=== PATIENT | male | born 1945 | race Caucasian/White ===

== ENCOUNTER 2017-08-20 06:21 | Inpatient (IN) | payer MEDICARE ==
[2017-08-20] VITALS (10 sets, daily range): BP systolic 121–171; BP diastolic 55–109; PULSE 63–92; RESP 18–20; TEMP 96.5–97.9; O2SAT 94–98
[~2017-08-20] VITALS: Ht 172.7 cm; Wt 94.1 kg
[~2017-08-20 06:21] MED LIST: ARIC5TAB PO; ASPI81TA82 PO; B12-1CHW CHEW; CORE25TA PO; HYZA100T6 PO; METF-324 PO; PRESCAP5 PO; SPIR25 PO; TAB-TAB PO
[2017-08-20] MEDS ORDERED: IOHEXOL 350 MG/ML 50 ML BTL (for RAD DIAG) IVCONTRAST ONE (06:22)
[2017-08-20] MEDS ORDERED: B-122000 PO (06:48)
[2017-08-20] MEDS ORDERED: ASPI-516 CHEW (06:48)
--- NOTE | 2017-08-20 06:54 | PD ---
HPI Chief Complaint: Respiratory Distress Time Seen by Provider: 06:47 Travel History International Travel<30 days: No Contact w/Intl Traveler<30days: No Traveled to known affect area: No History of Present Illness HPI 72-year-old male complains of shortness of breath. Patient states that his symptoms started a week ago and got progressively worse since then. Patient states that the shortness of it is worse with exertion and lying down at night. Patient denies any coughing congestion fever chills. Patient denies any chest pain. Patient denies abdominal pain. Patient denies any focal weakness or numbness of the extremity. Patient had a history of cardiomyopathy. Patient states that his ejection fraction was 47%. Patient states that he is not on diuretic. Patient states that he had increase in swelling of lower extremity recently. PFSH Past Medical History Hx Anticoagulant Therapy: Yes (ASA 81 PO DAILY) Heart Rhythm Problems: Yes (NON-ISCHEMIC) Cardiomyopathy: Yes Cardiovascular Problems: Yes (non ischemic cardiac myopathy. ) Diabetes: Yes (Metformin) Patient Takes Glucophage: Yes Diminished Hearing: No Gastrointestinal Disorders: Yes (ELEVATED LFT) Hypertension: Yes Musculoskeletal: Yes (DDD) Immunizations Current: Yes Influenza Vaccination: No Past Surgical History Abdominal Surgery: Yes (UMBILICAL HERNIA REPAIRED) AICD: Yes (mymxlog-ObjectFXSO VR DEBRILLATOR. SERIAL#[id number], MODEL#[id number]) Body Medical Devices: MEDTRONIC VR DEFIB Cardiac Surgery: Yes (DEFIBRILLATOR PLACEMENT) Eye Surgery: Yes (BILAT CATARACTS) Genitourinary Surgery: Yes (VASECTOMY) Joint Replacement: Yes ([facility]) Oral Surgery: Yes (S[facility]) Other Surgery: Yes (HEMORROIDECTOMY,STOMACH WALL REPAIR,VARICOSE VEIN ) Social History Alcohol Use: Yes (OCC) Tobacco Use: No Substance Use: No Allergies-Medications (Allergen,Severity, Reaction): Coded Allergies: penicillin G (Unverified Allergy, Severe, SYNCOPE, 02/01/17) Reported Meds & Prescriptions Reported Meds & Active Scripts Active Reported B-12 (Cyanocobalamin) 2,000 Mcg Tab Unknown Dose PO DAILY Aspirin 81 Mg Chew 81 Mg CHEW DAILY Review of Systems General / Constitutional: No: Fever Eyes: No: Visual changes HENT: No: Headaches Cardiovascular: No: Chest Pain or Discomfort Respiratory: Positive: Shortness of Breath Gastrointestinal: No: Abdominal Pain Genitourinary: No: Dysuria Musculoskeletal: No: Pain Skin: No Rash Neurologic: No: Weakness Psychiatric: No: Depression Endocrine: No: Polydipsia Hematologic/Lymphatic: No: Easy Bruising Physical Exam Narrative GENERAL: Well-nourished, well-developed patient. SKIN: Focused skin assessment warm/dry. HEAD: Normocephalic. EYES: No scleral icterus. No injection or drainage. NECK: Supple, trachea midline. No JVD or lymphadenopathy. CARDIOVASCULAR: Regular rate and rhythm without murmurs, gallops, or rubs. RESPIRATORY: Breath sounds equal bilaterally. No accessory muscle use. GASTROINTESTINAL: Abdomen soft, non-tender, nondistended. MUSCULOSKELETAL: No cyanosis. Patient had +1 pitting edema lower extremity. BACK: Nontender without obvious deformity. No CVA tenderness. Neurologic exam normal. Data Data Last Documented VS Vital Signs Date Time Temp Pulse Resp B/P (MAP) Pulse Ox O2 Delivery O2 Flow Rate FiO2 08/20/17 06:39 88 18 152/79 (103) 98 Nasal Cannula 2.00 08/20/17 06:25 96.5 Orders Orders Electrocardiogram (08/20/17 06:42) Complete Blood Count With Diff (08/20/17 06:42) Basic Metabolic Panel (Bmp) (08/20/17 06:42) Ckmb (Isoenzyme) Profile (08/20/17 06:42) Troponin I (08/20/17 06:42) Chest, Single Ap (08/20/17 06:42) Iv Access Insert/Monitor (08/20/17 06:42) Ecg Monitoring (08/20/17 06:42) Oxygen Administration (08/20/17 06:42) Oximetry (08/20/17 06:42) B-Type Natriuretic Peptide (08/20/17 06:42) MDM Medical Decision Making Medical Screen Exam Complete: Yes Emergency Medical Condition: Yes Differential Diagnosis Differential diagnosis including CHF, bronchitis, pneumonia, PE, pneumothorax. Narrative Course 72-year-old male with increasing shortness of breath and lower extremity edema for the past week. History of cardiomyopathy. History of reduced ejection fraction of 47%. Johny Zavaleta MD Aug 20, 2017 06:54
--- NOTE | 2017-08-20 07:01 | RADRPT ---
EXAM DATE/TIME: 08/20/2017 06:48 [facility] COMPARISON: CHEST SINGLE AP, August 06, 2015, 14:12. INDICATIONS : Shortness of breath. MEDICAL HISTORY : Hypertension. Diabetes mellitus type II. SURGICAL HISTORY : None. ENCOUNTER: Initial ACUITY: 1 day PAIN SCORE: 0/10 LOCATION: Bilateral chest FINDINGS: A single view of the chest demonstrates the lungs to be symmetrically aerated without evidence of mas s, infiltrate or effusion. Chronic elevation of the right hemidiaphragm. Heart is mildly enlarged but stable. Pacing device overlies the left chest. Osseous structures are intact. CONCLUSION: Stable cardiomegaly. The lungs are clear. Alexandre Jj MD on August 20, 2017 at 6:59
[2017-08-20] MEDS ORDERED: LOSA100T2 PO (07:16)
[2017-08-20] MEDS ORDERED: CORE25TA PO (07:16)
[2017-08-20] MEDS ORDERED: METF1000 PO (07:16)
[2017-08-20] MEDS ORDERED: TAMS5CAP PO (07:16)
[2017-08-20 07:21] LABS: AUTOMATED NEUTROPHIL # 5.2 TH/MM3 (1.8-7.7); BASOPHIL % 0.7 % (0.0-2.0); EOSINOPHIL # 0.2 TH/MM3 (0-0.4); EOSINOPHIL % 3.2 % (0.0-4.0); HEMATOCRIT 44.5 % (39.0-51.0); HEMOGLOBIN 15.3 GM/DL (13.0-17.0); LYMPH % 12.9 % (9.0-44.0); LYMPHOCYTE # 0.9 TH/MM3 (1.0-4.8); MEAN CELL VOLUME 89.3 FL (80.0-100.0); MEAN CORPUSCULAR HEMOGLOBIN 30.6 PG (27.0-34.0); MEAN CORPUSCULAR HGB CONC 34.3 % (32.0-36.0); MEAN PLATELET VOLUME 9.3 FL (7.0-11.0); MONO % 10.2 % (0.0-8.0); MONOCYTE # 0.7 TH/MM3 (0-0.9); PLATELET COUNT 156 TH/MM3 (150-450); RED BLOOD COUNT 4.98 MIL/MM3 (4.50-5.90); RED CELL DISTRIBUTION WIDTH 13.3 % (11.6-17.2); WHITE BLOOD COUNT 7.1 TH/MM3 (4.0-11.0)
[2017-08-20 08:06] LABS: BLOOD UREA NITROGEN 24 MG/DL (7-18); CALCIUM 9.2 MG/DL (8.5-10.1); CHLORIDE 107 MEQ/L (98-107); CREATININE 1.33 MG/DL (0.60-1.30); GLOMERULAR FILTRATION RATE 53 ML/MIN (>89); GLUCOSE,RANDOM 161 MG/DL (74-106); SODIUM (NA) 143 MEQ/L (136-145); TROPONIN I LESS THAN 0.02 NG/ML (0.02-0.05)
[2017-08-20] MEDS ORDERED: FUROSEMIDE 20 MG/2 ML VIAL IV PUSH ONE (08:30)
--- NOTE | 2017-08-20 09:00 | RADRPT ---
EXAM DATE/TIME: 08/20/2017 08:43 [facility] COMPARISON: No previous studies available for comparison. INDICATIONS : Shortness of breath. IV CONTRAST: 74 cc Omnipaque 350 (iohexol) IV RADIATION DOSE: 22.66 CTDIvol (mGy) MEDICAL HISTORY : Cardiovascular disease. Hypertension. Diabetes mellitus type 2. SURGICAL HISTORY : Pacemaker. ENCOUNTER: Initial ACUITY: 1 day PAIN SCALE: 0/10 LOCATION: Bilateral chest TECHNIQUE: Volumetric scanning of the chest was performed using a pulmonary embolism protocol MIP images were re constructed. Using automated exposure control and adjustment of the mA and/or kV according to patien t size, radiation dose was kept as low as reasonably achievable to obtain optimal diagnostic quality images. DICOM format image data is available electronically for review and comparison. Follow-up recommendations for detected pulmonary nodules are based at a minimum on nodule size and pa tient risk factors according to Fleischner Society Guidelines. FINDINGS: There is elevation of the right hemidiaphragm with colon, liver and small bowel in the right chest. There is compressive atelectasis in the right base because of this. The heart is enlarged mild interstitial edema. Moderate artery calcifications are noted. There is n o pericardial effusion. There is no central pulmonary emboli. There is axillary adenopathy on the left the largest node measuring 1.6 cm. There is nonspecific sma ll mediastinal nodes present. Upper abdominal contents visualized are unremarkable Degenerative changes thoracic spine. CONCLUSION: Marked elevation right hemidiaphragm with compressive atelectasis right base. Negative for central pulmonary emboli Nonspecific adenopathy. Mikey Stringer MD FACR on August 20, 2017 at 8:56 Board Certified Radiologist. This report was verified electronically.
--- NOTE | 2017-08-20 09:03 | EKG ---
Date Performed: 08/20/2017 Time Performed: 06:38:05 PTAGE: 72 years EKG: ATRIAL FIBRILLATION WITH ABERRANT CONDUCTION OR VENTRICULAR PREMATURE COMPLEXES MARKED LEFT AXIS DEVIATION POSSIBLE ANTERIOR MYOCARDIAL INFARCTION ABNORMAL ECG PREVIOUS TRACING : 08/06/2015 19.58 DOCTOR: Larry Moran Interpretating Date/Time 08/20/2017 09:02:11
--- NOTE | 2017-08-20 09:23 | HHI.HP ---
HPI Service Family Medicine Primary Care Physician Non-Staff Admission Diagnosis CHF; AFib Diagnoses: International Travel<30 Days: No Contact w/Intl Traveler<30days: No Known Affected Area: No History of Present Illness Patient is a 72- year-old Male with PMHx of non-ischemic cardiomyopathy, CHF, HTN, and DM presented to the ED with 1 wk h/o SOB associated with inability to lay down. He stated he thought it was going to get better and since it did not improved he came to the ED for evaluation. Patient reports nothing made the SOB better. Denies any increased SOB with ambulation. Patient and live in [place] and spend 4 months out of the year in [place]. He is not established with any biblical studies professor in the area. He last saw his biblical studies professor ( Dr. Childress tel:[phone]) in [place] in 2016 and was told everything was good. Echo done at that time showed EF 50% and was told to f/u in a yr. Denies fever, chill, CP, N/V, palpitations, or dizziness. Patient states his [id number] was sick but he denies any cold-like sxs. Of note patient stated that last time he had SOB with laying down occurred in 2007 after he had Left hip surgery, at that time he ended up requiring ICU care for 16 days and found to have an EF of 10%. Patient stated that he was told the cardiomyopathy was due to a virus and was diagnosed with non ischemic cardiomyopathy. Patient also reports that during that time he had a pacer- defibrillator placed by Dr. Bustos, which was replaced Summer 2016. Denies any prior hx of atrial fibrillation. Patient takes promethazine for allergies. (Lizette Leach MD, R1) Review of Systems Constitutional: COMPLAINS OF: Fatigue (chronic), Weight gain (10lbs), DENIES: Fever, Weight loss, Chills, Dizziness, Change in appetite Eyes: DENIES: Blurred vision, Eye pain Ears, nose, mouth, throat: DENIES: Vertigo, Nasal discharge, Throat pain, Running Nose, Sinus Pain Respiratory: COMPLAINS OF: Cough (chronic in the am due to allergies), Shortness of breath, DENIES: Hemoptysis Cardiovascular: DENIES: Chest pain, Palpitations, Lower Extremity Edema Gastrointestinal: COMPLAINS OF: Abdominal pain (diastatis in stomach, chronic ) , DENIES: Bloody stools, Constipation, Diarrhea, Nausea, Vomiting Genitourinary: DENIES: Urinary frequency, Dysuria Musculoskeletal: COMPLAINS OF: Joint pain (R. knee pain, 2016 chronic), Back pain (L4-5 degenerative disc, spinal stenosis), DENIES: Muscle aches Integumentary: DENIES: Rash Hematologic/lymphatic: DENIES: Bruising Neurologic: DENIES: Headache, Localized weakness, Seizures Psychiatric: DENIES: Confusion (Lizette Leach MD, R1) Past Family Social History Past Medical History CHF HTN DM, range A1C 6.5 spinal stenosis degenerative disc l4-l5 adult onset macular degenerative Past Surgical History Left hip 2004 Right knee, 2016 Reported Medications Reported Meds & Active Scripts Active Reported Metformin (Metformin HCl) 1,000 Mg Tab 1,000 Mg PO DAILY With a meal Losartan-Hydrochlorothiazide 100-25 Mg Tab 1 Tab PO DAILY Flomax (Tamsulosin HCl) 0.4 Mg Cap 0.4 Mg PO HS Coreg (Carvedilol) 25 Mg Tab 25 Mg PO BID B-12 (Cyanocobalamin) 2,000 Mcg Tab Unknown Dose PO DAILY Aspirin 81 Mg Chew 81 Mg CHEW DAILY (Lizette Leach MD, R1) Allergies: Coded Allergies: penicillin G (Unverified Allergy, Severe, SYNCOPE, 02/01/17) Family History mom- [place] at 83 yo dad- coronary thrombosis, alcoholic, at 57yo brother- CHF Social History Patient lives with , they are from [place] and come [place] for 4 months out of the year. They are currently staying live in [facility] for 4 months out of the years retired, senior manager quality assurance smoke, quit 30 yr ago, 25 smoked 2 packs per day, in addition to pipe tobacco alcohol: occassinal, once a wk illicit drug: none decreased appetite (Lizette Leach MD, R1) Physical Exam Vital Signs Vital Signs Date Time Temp Pulse Resp B/P (MAP) Pulse Ox O2 Delivery O2 Flow Rate FiO2 08/20/17 06:54 98 Nasal Cannula 2.00 08/20/17 06:54 98 Nasal Cannula 2.00 08/20/17 06:39 88 18 152/79 (103) 98 Nasal Cannula 2.00 08/20/17 06:35 20 94 Room Air 08/20/17 06:25 96.5 92 20 171/109 (437) 97 Physical Exam GENERAL: This is a well-nourished, well-developed patient, in no apparent distress, sitting in chair. SKIN: No rashes, ecchymoses. Cool and dry. Small healing lesion on dorsum of Left foot. HEAD: Atraumatic. Normocephalic. EYES: Pupils equal round and reactive. Extraocular motions intact. No scleral icterus. No injection or drainage. ENT: Nose without bleeding, purulent drainage or septal hematoma. Throat without erythema, tonsillar hypertrophy or exudate. Uvula midline. Airway patent. NECK: Trachea midline. No JVD or lymphadenopathy. Supple, nontender, no meningeal signs. No hepato CARDIOVASCULAR: Irregular rate and rhythm without murmurs, gallops, or rubs. RESPIRATORY: Clear to auscultation. Decreased breath sound on Right lower base. No wheezes, rales, or rhonchi. GASTROINTESTINAL: Abdomen distended, hard. unable to appreciate fluid shift on exam. No hepato-splenomegaly, or palpable masses. No guarding. no hepatojugular reflux noted. MUSCULOSKELETAL: Extremities without clubbing, or cyanosis. Mild Right LE edema noted. No joint tenderness, effusion, or edema noted. No calf tenderness. Negative Homans sign bilaterally. NEUROLOGICAL: Awake and alert. Cranial nerves II through XII intact. Motor and sensory grossly within normal limits. Five out of 5 muscle strength in all muscle groups. Normal speech. Laboratory Laboratory Tests Test 08/20/17 07:00 White Blood Count 7.1 Red Blood Count 4.98 Hemoglobin 15.3 Hematocrit 44.5 Mean Corpuscular Volume 89.3 Mean Corpuscular Hemoglobin 30.6 Mean Corpuscular Hemoglobin Concent 34.3 Red Cell Distribution Width 13.3 Platelet Count 156 Mean Platelet Volume 9.3 Neutrophils (%) (Auto) 73.0 Lymphocytes (%) (Auto) 12.9 Monocytes (%) (Auto) 10.2 Eosinophils (%) (Auto) 3.2 Basophils (%) (Auto) 0.7 Neutrophils # (Auto) 5.2 Lymphocytes # (Auto) 0.9 Monocytes # (Auto) 0.7 Eosinophils # (Auto) 0.2 Basophils # (Auto) 0.0 CBC Comment DIFF FINAL Differential Comment Blood Urea Nitrogen 24 Creatinine 1.33 Random Glucose 161 Calcium Level 9.2 Sodium Level 143 Potassium Level 4.2 Chloride Level 107 Carbon Dioxide Level 34.0 Anion Gap 2 Estimat Glomerular Filtration Rate 53 Total Creatine Kinase 111 Creatine Kinase MB 1.5 Troponin I LESS THAN 0.02 B-Type Natriuretic Peptide 230 (Lizette Leach MD, R1) Result Diagram: 08/20/17 0700 08/20/[address] Angiography 08/20/17 08 Signed Impressions: Service Date/Time: Sunday, August 20, 2017 08:43 - CONCLUSION: Marked elevation right hemidiaphragm with compressive atelectasis right base. Negative for central pulmonary emboli Nonspecific adenopathy. Mikey Stringer MD FACR Chest X-Ray 08/20/17 0642 Signed Impressions: Service Date/Time: Sunday, August 20, 2017 06:48 - CONCLUSION: Stable cardiomegaly. The lungs are clear. Alexandre Jj MD (Lizette Leach MD, R1) Caprini VTE Risk Assessment Caprini VTE Risk Assessment: Mod/High Risk (score >= 2) Caprini Risk Assessment Model Point Value = 1 Point Value = 2 Point Value = 3 Point Value = 5 Age 41-60 Minor surgery BMI > 25 kg/m2 Swollen legs Varicose veins or History of unexplained or recurrent spontaneous Oral contraceptives or hormone replacement Sepsis (< 1 month) Serious lung disease, including pneumonia (< 1 month) Abnormal pulmonary function Acute myocardial infarction Congestive heart failure (< 1 month) History of inflammatory bowel disease Medical patient at bed rest Age 61-74 Arthroscopic surgery Major open surgery (> 45 min) Laparoscopic surgery (> 45 min) Malignancy Confined to bed (> 72 hours) Immobilizing plaster cast Central venous access Age >= 75 History of VTE Family history of VTE Factor V Leiden Prothrombin [id number] Lupus anticoagulant Anticardiolipin antibodies Elevated serum homocysteine Heparin-induced thrombocytopenia Other congenital or acquired thrombophilia Stroke (< 1 month) Elective arthroplasty Hip, pelvis, or leg fracture Acute spinal cord injury (< 1 month) Prophylaxis Regimen Total Risk Factor Score Risk Level Prophylaxis Regimen 0-1 Low Early ambulation 2 Moderate Order ONE of the following: *Sequential Compression Device (SCD) *Heparin 5000 units SQ BID 3-4 Higher Order ONE of the following medications: *Heparin 5000 units SQ TID *Enoxaparin/Lovenox 40 mg SQ daily (WT < 150 kg, CrCl > 30 mL/min) *Enoxaparin/Lovenox 30 mg SQ daily (WT < 150 kg, CrCl > 10-29 mL/min) *Enoxaparin/Lovenox 30 mg SQ BID (WT < 150 kg, CrCl > 30 mL/min) AND/OR *Sequential Compression Device (SCD) 5 or more Highest Order ONE of the following medications: *Heparin 5000 units SQ TID (Preferred with Epidurals) *Enoxaparin/Lovenox 40 mg SQ daily (WT < 150 kg, CrCl > 30 mL/min) *Enoxaparin/Lovenox 30 mg SQ daily (WT < 150 kg, CrCl > 10-29 mL/min) *Enoxaparin/Lovenox 30 mg SQ BID (WT < 150 kg, CrCl > 30 mL/min) AND *Sequential Compression Device (SCD) (Lizette Laech MD, R1) Assessment and Plan Assessment and Plan Patient is a 72- year-old Male with PMHx of non-ischemic cardiomyopathy, CHF, HTN, and DM presented to the ED with 1 wk h/o SOB associated with orthopnea. Patient found to be in rate controlled new onset atrial fibrillation on EKG. Admitted for further w/u of SOB CHF exacerbation vs. atrial fib. Pt is stable with slight elevation of BP, O2 saturation of 97 on 2 L NC, other VS WNL. No signs of infection. Code Status Full code Discussed Condition With SWD Dr. Shahram Lawson (Lizette Leach MD, R1) Attending Attestation Pt. was seen and examined after discussing with Drs. Leach and Shahram. He is from [facility] and has not check his glucose since the end of May when he came to [place] for 4 months. He used to keep a spread sheet and his last accucheck in [place] was 120 and his A1c was reportedly 6.6. He has an defibrillator /AICD as of just over year ago when it was replaced for battery failure. Pt. report no hx of atrial fibrillation. Has been having orthopnea recently, and his pants have felt too tight. Thinks he may have gained at least 10 lb. I agree with the exam as noted above. Patient seen and examined. Case reviewed and discussed with the resident team. Agree with plan of care as discussed with me and documented in the resident note. (Aliyah Lawson MD) Problem List: (1) Shortness of breath ICD Codes: R06.02 - Shortness of breath Status: Acute Plan: Patient with c/o 1 wk h/o SOB associated with orthopnea. -Pt has PMHx of CHF, HTN and non-ischemic cardiomyopathy with pacer- defibrillator in place. Denies history of afib. -Mild Right LE edema, abdominal distention noted on exam. Denies palpitation or dizziness. Reports improvement of SOB on 2L NC. DDX: CHF exacerbation, A. Fib, PE, AR No leukocytosis, troponin x1 neg, BNP 230 EKG: Atrial Fibrillation with aberrant conduction or ventricular premature complexes. Left axis deviation unchanged from previous EKG in 07/2015 CXR: Stable cardiomegaly, lungs are clear CTA: Marked elevation right hemidiaphragm with compressive atelectasis right base. Negative for central pulmonary emboli and specific adenopathy. -c/w asa -Pt placed on telemetry -f/u Echo, abdominal u/s, TSH, free T4 -f/u serial troponin and EKG -Patient with a CHADSVASC SCORE: 4, consider anticoagulation therapy once reports from echo are back -Cardiology consulted, appreciate recommendations (2) CHF (congestive heart failure) ICD Codes: I50.9 - Heart failure, unspecified Status: Chronic Plan: c/w home medication, coreg see chest pain plan above (3) Hypertension ICD Codes: I10 - Essential (primary) hypertension Status: Chronic Plan: c/w home meds monitor VS (4) DM (diabetes mellitus) ICD Codes: E11.9 - Type 2 diabetes mellitus without complications Status: Chronic Plan: Patient has not been checking his BG for the past wk. B on admission Bedside glucose chks low dose sliding scale Last A1C 6.5, per patient continue to monitor (5) History of cardiomyopathy ICD Codes: Z86.79 - Personal history of other diseases of the circulatory system Status: Chronic Plan: Patient with past medical history of nonischemic cardiomyopathy Cardiomegaly noted on chest x-ray -See plan above for SOB (6) Nutrition, metabolism, and development symptoms ICD Codes: R63.8 - Other symptoms and signs concerning food and fluid intake Plan: Fluids: will hold off at this point Electrolytes: replete as needed, will continue to monitor Nutrition: heart healthy DVT ppx: therapeutic Lovenox given (Lizette Leach MD, R1) Problem Qualifiers (1) CHF (congestive heart failure): Qualified Codes: I50.9 - Heart failure, unspecified (2) DM (diabetes mellitus): Lizette Leach MD, R1 Aug 20, 2017 09:22 Aliyah Lawson MD Aug 20, 2017 19:33
[2017-08-20] MEDS ORDERED: SODIUM CHLORIDE 0.9% FLUSH 10 ML FLUSH IV FLUSH PRN (10:15)
[2017-08-20] MEDS ORDERED: GLUCAGON 1 MG/ML VIAL OTHER PRN (10:30)
[2017-08-20] MEDS ORDERED: DEXTROSE 50% IN WATER 50 ML VIAL(D50) IV PUSH PRN (10:30)
--- NOTE | 2017-08-20 10:36 | PD ---
Data Data Last Documented VS Vital Signs Date Time Temp Pulse Resp B/P (MAP) Pulse Ox O2 Delivery O2 Flow Rate FiO2 08/20/17 06:54 98 Nasal Cannula 2.00 08/20/17 06:39 88 18 08/20/17 06:25 96.5 Orders Orders Electrocardiogram (08/20/17 06:42) Complete Blood Count With Diff (08/20/17 06:42) Basic Metabolic Panel (Bmp) (08/20/17 06:42) Ckmb (Isoenzyme) Profile (08/20/17 06:42) Troponin I (08/20/17 06:42) Chest, Single Ap (08/20/17 06:42) Iv Access Insert/Monitor (08/20/17 06:42) Ecg Monitoring (08/20/17 06:42) Oxygen Administration (08/20/17 06:42) Oximetry (08/20/17 06:42) B-Type Natriuretic Peptide (08/20/17 06:42) CKMB (08/20/17 07:00) CKMB% (08/20/17 07:00) Ct Pulmonary Angiogram (08/20/17 08:19) Furosemide Inj (Lasix Inj) (08/20/17 08:30) Iohexol 350 Inj (Omnipaque 350 Inj) (08/20/17 06:22) Admit Order (Ed Use Only) (08/20/17 ) Commercial Carpenter / Telemetry [email or web address] (08/20/17 08:49) Vital Signs (Adult) Q4H (08/20/17 08:49) Diet Heart Healthy (08/20/17 Breakfast) Activity Oob With Assistance (08/20/17 08:49) Labs Laboratory Tests Test 08/20/17 07:00 White Blood Count 7.1 TH/MM3 Red Blood Count 4.98 MIL/MM3 Hemoglobin 15.3 GM/DL Hematocrit 44.5 % Mean Corpuscular Volume 89.3 FL Mean Corpuscular Hemoglobin 30.6 PG Mean Corpuscular Hemoglobin Concent 34.3 % Red Cell Distribution Width 13.3 % Platelet Count 156 TH/MM3 Mean Platelet Volume 9.3 FL Neutrophils (%) (Auto) 73.0 % Lymphocytes (%) (Auto) 12.9 % Monocytes (%) (Auto) 10.2 % Eosinophils (%) (Auto) 3.2 % Basophils (%) (Auto) 0.7 % Neutrophils # (Auto) 5.2 TH/MM3 Lymphocytes # (Auto) 0.9 TH/MM3 Monocytes # (Auto) 0.7 TH/MM3 Eosinophils # (Auto) 0.2 TH/MM3 Basophils # (Auto) 0.0 TH/MM3 CBC Comment DIFF FINAL Differential Comment Blood Urea Nitrogen 24 MG/DL Creatinine 1.33 MG/DL Random Glucose 161 MG/DL Calcium Level 9.2 MG/DL Sodium Level 143 MEQ/L Potassium Level 4.2 MEQ/L Chloride Level 107 MEQ/L Carbon Dioxide Level 34.0 MEQ/L Anion Gap 2 MEQ/L Estimat Glomerular Filtration Rate 53 ML/MIN Total Creatine Kinase 111 U/L Creatine Kinase MB 1.5 NG/ML Troponin I LESS THAN 0.02 NG/ML B-Type Natriuretic Peptide 230 PG/ML MDM Medical Record Reviewed: Yes Supervised Visit with IVETT: No Narrative Course Please refer to the outgoing provider note: The patient will be admitted for treatment of CHF, new diagnosis for him he also has new A. fib with a normal rate. The time of reassessment he was somewhat dyspneic at rest. Lasix ordered. A CT pulmonary injury was also ordered which shows no PE however there is compressive atelectasis at the right base. CBC & BMP Diagram 08/20/17 07:00 Calcium Level 9.[address] Angiography 08/20/17 0819 Signed Impressions: Service Date/Time: Sunday, August 20, 2017 08:43 - CONCLUSION: Marked elevation right hemidiaphragm with compressive atelectasis right base. Negative for central pulmonary emboli Nonspecific adenopathy. Mikey Stringer MD FACR Chest X-Ray 08/20/17 0642 Signed Impressions: Service Date/Time: Sunday, August 20, 2017 06:48 - CONCLUSION: Stable cardiomegaly. The lungs are clear. Alexandre Jj MD Case discussed with family and consumer sciences professor for Dr Lawson Diagnosis Primary Impression: CHF (congestive heart failure) Qualified Codes: I50.9 - Heart failure, unspecified Additional Impression: Atrial fibrillation Qualified Codes: I48.91 - Unspecified atrial fibrillation Admitting Information Admitting Physician Requests: Observation Jabier Pickering MD Aug 20, 2017 10:36
[2017-08-20 10:59] LABS: PROTHROMBIN TIME - PATIENT 10.6 SEC (9.8-11.6)
[2017-08-20] MEDS ORDERED: HEPARIN SODIUM - SQ 10,000 UNITS/ML VIAL SQ SCH (11:00)
[2017-08-20] MEDS: INSULIN ASPART SUPPLEMENTAL SCALE SQ SCH ×3 (12:00→21:00)
[2017-08-20] MEDS: ENOXAPARIN SODIUM 100 MG/ML SYRINGE SQ SCH (12:10)
[2017-08-20] MEDS ORDERED: PROM6.254 PO (14:17)
--- NOTE | 2017-08-20 15:09 | ECHRPT ---
Indication: heart failure CONCLUSIONS Normal left ventricular size. The left ventricular systolic function is severely reduced with an estimated ejection fraction in th e range of 25-30% Global hypokinesis. Vqsrt-[id number] mitral valve regurgitation. There is mild tricuspid valve regurgitation. The estimated pulmonary arterial pressure is 66.6 mmHg. BP: / HR: Rhythm: MEASUREMENTS (Male / Female) Normal Values Technical Quality:Fair 2D ECHO LV Diastolic Diameter PLAX 5.3 cm 4.2 - 5.9 / 3.9 - 5.3 cm LV Systolic Diameter PLAX 4.8 cm IVS Diastolic Thickness 2.1 cm 0.6 - 1.0 / 0.6 - 0.9 cm LVPW Diastolic Thickness 1.2 cm 0.6 - 1.0 / 0.6 - 0.9 cm LV Relative Wall Thickness 0.6 RV Internal Dim ED PLAX 3.5 cm M-MODE Aortic Root Diameter MM 4.8 cm LA Systolic Diameter MM 4.5 cm LA Ao Ratio MM 0.9 AV Cusp Separation MM 2.6 cm DOPPLER LV E' Lateral Velocity 10.5 cm/s LV E' Septal Velocity 8.9 cm/s TR Peak Velocity 376.0 cm/s TR Peak Gradient 56.6 mmHg Right Atrial Pressure 10.0 mmHg Pulmonary Artery Systolic Pressu 66.6 mmHg Right Ventricular Systolic Press 66.6 mmHg FINDINGS LEFT VENTRICLE Normal left ventricular size. The left ventricular systolic function is severely reduced with an estimated ejection fraction in th e range of 25-30%. RIGHT VENTRICLE Normal right ventricular size and systolic function. LEFT ATRIUM The left atrial size is normal. RIGHT ATRIUM The right atrial size is normal. ATRIAL SEPTUM Normal atrial septal thickness without atrial level shunting by limited color doppler interrogation. AORTA The aortic root and proximal ascending aorta are normal in size on limited imaging. MITRAL VALVE Structurally normal mitral valve. Myopa-ed-tncw mitral valve regurgitation. AORTIC VALVE Trileaflet aortic valve. No aortic valve stenosis or regurgitation. TRICUSPID VALVE Structurally normal tricuspid valve. There is mild tricuspid valve regurgitation. The estimated pulmonary arterial pressure is 66.6 mmHg. PULMONARY VALVE No pulmonary valve regurgitation or stenosis. VESSELS The inferior vena cava is normal in size. PERICARDIUM No pericardial effusion. Cris Desir MD, FACC (Electronically Signed) Final Date:20 August 2017 15:09
[2017-08-20] MEDS ORDERED: METOPROLOL TARTRATE 25 MG TAB PO SCH (21:00)
[2017-08-20] MEDS ORDERED: CARVEDILOL 12.5 MG TAB PO SCH (21:00)
[2017-08-20] MEDS: TAMSULOSIN HCL 0.4 MG CAP PO SCH (21:34)
[2017-08-20] MEDS: METOPROLOL TARTRATE 25 MG TAB PO SCH (21:34)
[2017-08-20] MEDS: METOPROLOL TARTRATE 100 MG TAB PO SCH (21:34)
[2017-08-20] MEDS: SODIUM CHLORIDE 0.9% FLUSH 10 ML FLUSH IV FLUSH SCH (21:35)
--- NOTE | 2017-08-20 21:47 | RADRPT ---
EXAM DATE/TIME: 08/20/2017 19:11 [facility] COMPARISON: No previous studies available for comparison. INDICATIONS : Abdominal distention. MEDICAL HISTORY : Congestive heart failure. Hypertension. Cardiomyopathy. Anticoagulant therapy. Irregular heartbeat. Degernerative disc disease. Spinal stenosis. Diabetes. Elevated liver enzymes. SURGICAL HISTORY : Umbilical hernia repair. Hemorrhoidectomy. Internal defibrillator. Bilateral cataract removal. Sali vary gland surgery. Vasectomy. Left shoulder surgery. Spinal stenosis repair. Bilateral hand surgery. Left hip replacement. Right knee surgery. Stomach wall repair. Varicose vein surgery. ENCOUNTER: Initial ACUITY: 1 day PAIN SCORE: 3/10 LOCATION: Bilateral upper quadrant MEASUREMENTS: LIVER: 15.3 cm length COMMON DUCT: Non-visualized RIGHT KIDNEY: 12.2 x 5.5 x 6.7 cm LEFT KIDNEY: 10.9 x 4.1 x 5.6 cm SPLEEN: 12.8 cm length AORTA: 1.7cm maximal FINDINGS: Exam is limited by bowel gas. Pancreas, common bile duct, aorta, IVC and portions of the liver are no t visualized. Multiple right renal cysts measuring up to 6.5 cm upper pole and 5.5 cm lower pole. No hydronephrosis. Left kidney unremarkable. No focal liver abnormalities. Portal vein flowed normal dir ection. CONCLUSION: 1. Limited exam due to gaseous bowel. No acute findings. Multiple right renal cysts. Vik Castro MD on August 20, 2017 at 21:43 Board Certified Radiologist. This report was verified electronically.
[2017-08-20 22:55] LABS: TROPONIN I 0.03 NG/ML (0.02-0.05)
[2017-08-21] VITALS (11 sets, daily range): BP systolic 136–166; BP diastolic 77–88; PULSE 61–85; RESP 17–20; TEMP 97.3–98.5; O2SAT 85–97
[2017-08-21] MEDS: ENOXAPARIN SODIUM 100 MG/ML SYRINGE SQ SCH ×2 (00:31→13:14)
[2017-08-21 06:09] LABS: AUTOMATED NEUTROPHIL # 3.9 TH/MM3 (1.8-7.7); BASOPHIL % 0.6 % (0.0-2.0); EOSINOPHIL # 0.2 TH/MM3 (0-0.4); EOSINOPHIL % 3.1 % (0.0-4.0); HEMATOCRIT 42.3 % (39.0-51.0); HEMOGLOBIN 14.6 GM/DL (13.0-17.0); LYMPH % 14.6 % (9.0-44.0); LYMPHOCYTE # 0.8 TH/MM3 (1.0-4.8); MEAN CELL VOLUME 88.9 FL (80.0-100.0); MEAN CORPUSCULAR HEMOGLOBIN 30.6 PG (27.0-34.0); MEAN CORPUSCULAR HGB CONC 34.5 % (32.0-36.0); MEAN PLATELET VOLUME 9.2 FL (7.0-11.0); MONOCYTE # 0.5 TH/MM3 (0-0.9); NEUT % 71.7 % (16.0-70.0); PLATELET COUNT 132 TH/MM3 (150-450); RED BLOOD COUNT 4.76 MIL/MM3 (4.50-5.90); RED CELL DISTRIBUTION WIDTH 13.2 % (11.6-17.2); WHITE BLOOD COUNT 5.5 TH/MM3 (4.0-11.0)
[2017-08-21 06:25] LABS: BICARBONATE 32.6 MEQ/L (21.0-32.0); CALCIUM 8.6 MG/DL (8.5-10.1); CREATININE 1.22 MG/DL (0.60-1.30)
[2017-08-21] MEDS: INSULIN ASPART SUPPLEMENTAL SCALE SQ SCH ×4 (08:00→22:08)
--- NOTE | 2017-08-21 08:49 | MB ---
cc: Cris Desir MD DATE OF CONSULT: 08/20/2017 REASON FOR CONSULTATION: New onset atrial fibrillation. HISTORY OF PRESENT ILLNESS: Mr. Goff is a 72-year-old man who does have a remote history of a viral cardiomyopathy with subsequent [employer] ICD placement. He reports that he had some progressive shortness of breath and orthopnea. He subsequently came to the emergency room and was found to be in atrial fibrillation with rapid ventricular rate. The patient other than the weight gain and shortness of breath denies any chest pain. He has had some lower extremity edema. PAST MEDICAL HISTORY: Significant for the viral cardiomyopathy. His initial EF was 10%. The patient reports that his most recent EF was 40-50%. He is status post gen change with [employer] ICD. He also has a history of hypertension, diabetes, congestive heart failure, degenerative disc disease, concussion, hemorrhoid surgery, left hip replacement, right knee replacement, elevated bilirubin, rhinoplasty, salivary gland surgery, shoulder surgery, spinal stenosis, splenic wall repair, umbilical hernia repair,varicose vein surgery, vasectomy. OUTPATIENT MEDICATIONS: 1. Aspirin 81 mg a day 2. B12 3. Vitamins 4. Coreg 25 mg q. 12 5. Flomax 0.4 mg daily 6. Losartan hydrochlorothiazide daily 7. Metformin 1000 mg daily 8. Promethazine p.r.n. FAMILY HISTORY: Includes myocardial infarction. SOCIAL HISTORY: The patient is a former smoker and is . REVIEW OF SYSTEMS: Except as mentioned in the history of present illness, all 12-systems are negative. PHYSICAL EXAMINATION: VITAL SIGNS: 81, 20, 146/91. GENERAL: He is an obese man, who is in no apparent distress. NECK: His neck is free from JVD. LUNGS: Bilaterally clear to auscultation. CARDIOVASCULAR: He has a normal S1 and S2. I did not appreciate any murmurs, rubs or gallops. ABDOMEN: Soft. EXTREMITIES: Do still have a mild amount of edema. Of note, there is a liter of urine in the urinal at the bedside. LABORATORY DATA: Lab values significant for a creatinine of 1.33, glucose of 161, BNP of 230, troponin less than 0.02 and free TSH of 1.3. IMAGING STUDIES: Chest x-ray shows clear lungs. TELEMETRY: Does show atrial fibrillation with a controlled ventricular rate at 85 beats a minute. IMPRESSION: New onset atrial fibrillation - the patient does have a CHADS vas score of 4 with a point for over 65, hypertension, diabetes and congestive heart failure. We discussed anticoagulation with Coumadin versus the new oral agents. He would like to go with a new agent provided it is covered by his insurance. He is going to check on this. He does understand that Pradaxa is the only one with a reversal agent and the other newer agents do not have an antidote. He will undergo echocardiogram and stress testing. This may be considered as an outpatient depending on the ability to schedule. The patient will be changed from Coreg to metoprolol for improved rate control. Heart failure - this is an acute on chronic presentation exacerbated by his atrial fibrillation with RVR. He has diuresed quite a bit but does still have some edema. As his rate is controlled I suspect we will be able to continue him only on his hydrochlorothiazide. Of course this will be pending the echo evaluation of his EF. Viral cardiomyopathy - as above I would continue him on a beta-abhijit and his ARB. Thank you for allowing me the opportunity to participate in his care. MD HANDY Mahmood/ELIJAH/ken , 11:20 AM , 11:57 AM
--- NOTE | 2017-08-21 08:50 | PD.CARD.PN ---
Subjective Subjective Remarks Pt without complaints Objective Medications Current Medications Medications (Trade) Dose Ordered Sig/Shana Route Start Time Stop Time Status Last Admin (NS Flush) 2 ml BID IV FLUSH 08/20/17 21:00 08/20/17 21:35 (NS Flush) 2 ml UNSCH PRN IV FLUSH 08/20/17 10:15 (Aspirin Chew) 81 mg DAILY CHEW 08/21/17 09:00 (Flomax) 0.4 mg HS PO 08/20/17 21:00 08/20/17 21:34 (Hydrodiuril) 25 mg DAILY PO 08/21/17 09:00 (D50w (Vial) Inj) 50 ml UNSCH PRN IV PUSH 08/20/17 10:30 (Glucagon Inj) 1 mg UNSCH PRN OTHER 08/20/17 10:30 (NovoLOG SUPPLEMENTAL SCALE) 1 ACHS SLIDING SCALE SQ 08/20/17 12:00 (Lovenox Inj) 97 mg Q12H SQ 08/20/17 12:00 08/21/17 00:31 (Cozaar) 50 mg DAILY PO 08/21/17 09:00 (Lopressor) 100 mg Q12HR PO 08/20/17 21:00 08/20/17 21:34 (Lopressor) 25 mg Q12HR PO 08/20/17 21:00 08/20/17 21:34 Vital Signs / I&O Vital Signs Date Time Temp Pulse Resp B/P (MAP) Pulse Ox O2 Delivery O2 Flow Rate FiO2 08/21/17 08:02 97.8 80 17 143/88 (106) 97 08/21/17 04:00 97.5 75 20 156/77 (103) 95 08/21/17 04:00 Nasal Cannula 2.00 08/21/17 04:00 70 08/21/17 02:46 94 Nasal Cannula 2.00 08/21/17 00:00 61 08/21/17 00:00 97.5 76 20 136/82 (100) 95 08/21/17 00:00 95 Nasal Cannula 2.00 08/20/17 20:00 97.7 85 20 154/91 (112) 94 08/20/17 20:00 94 Nasal Cannula 2.00 08/20/17 20:00 90 08/20/17 16:00 Nasal Cannula 2.00 08/20/17 15:13 86 08/20/17 15:10 Nasal Cannula 2.00 08/20/17 15:00 97.9 63 18 121/55 (77) 96 08/20/17 14:12 96 08/20/17 13:28 97.7 86 18 159/94 (115) 96 08/20/17 13:00 88 20 151/67 (95) 97 Nasal Cannula 2.00 08/20/17 10:00 81 20 146/91 (109) 97 Nasal Cannula 2.00 I/O 08/20/17 08/20/17 08/20/17 08/21/17 08/21/17 08/21/17 07:00 15:00 23:00 07:00 15:00 23:00 Intake Total 120 ml 240 ml Output Total 1000 ml 900 ml Balance -1000 ml 120 ml -660 ml Intake Oral 120 ml 240 ml Output Urine Total 1000 ml 900 ml # Voids 1 1 Physical Exam GENERAL: Well developed, well nourished. No acute distress. HEENT: Jugular venous pressure is normal. CHEST: Lungs clear to auscultation bilaterally. Unlabored respiratory effort. CARDIAC: irregular rate and rhythm without S3, S4, or murmur. ABDOMEN: Soft, nontender, no hepatosplenomegaly. Bowel sounds present. EXTREMITIES: No clubbing, cyanosis, or edema. Laboratory Laboratory Tests Test 08/20/17 10:30 08/20/17 13:05 08/20/17 21:44 08/21/17 05:20 Prothrombin Time 10.6 SEC Prothromb Time International Ratio 1.0 RATIO Activated Partial Thromboplast Time 22.4 SEC Troponin I LESS THAN 0.02 NG/ML 0.03 NG/ML Thyroid Stimulating Hormone 3rd Gen 1.080 uIU/ML White Blood Count 5.5 TH/MM3 Red Blood Count 4.76 MIL/MM3 Hemoglobin 14.6 GM/DL Hematocrit 42.3 % Mean Corpuscular Volume 88.9 FL Mean Corpuscular Hemoglobin 30.6 PG Mean Corpuscular Hemoglobin Concent 34.5 % Red Cell Distribution Width 13.2 % Platelet Count 132 TH/MM3 Mean Platelet Volume 9.2 FL Neutrophils (%) (Auto) 71.7 % Lymphocytes (%) (Auto) 14.6 % Monocytes (%) (Auto) 10.0 % Eosinophils (%) (Auto) 3.1 % Basophils (%) (Auto) 0.6 % Neutrophils # (Auto) 3.9 TH/MM3 Lymphocytes # (Auto) 0.8 TH/MM3 Monocytes # (Auto) 0.5 TH/MM3 Eosinophils # (Auto) 0.2 TH/MM3 Basophils # (Auto) 0.0 TH/MM3 CBC Comment DIFF FINAL Differential Comment Blood Urea Nitrogen 27 MG/DL Creatinine 1.22 MG/DL Random Glucose 121 MG/DL Calcium Level 8.6 MG/DL Sodium Level 144 MEQ/L Potassium Level 3.8 MEQ/L Chloride Level 107 MEQ/L Carbon Dioxide Level 32.6 MEQ/L Anion Gap 4 MEQ/L Estimat Glomerular Filtration Rate 58 ML/MIN Imaging Last [address] Angiography 08/20/17 0819 Signed Impressions: Service Date/Time: Sunday, August 20, 2017 08:43 - CONCLUSION: Marked elevation right hemidiaphragm with compressive atelectasis right base. Negative for central pulmonary emboli Nonspecific adenopathy. Mikey Stringer MD FACR Chest X-Ray 08/20/17 0642 Signed Impressions: Service Date/Time: Sunday, August 20, 2017 06:48 - CONCLUSION: Stable cardiomegaly. The lungs are clear. Alexandre Jj MD Abdomen Ultrasound 08/20/17 0000 Signed Impressions: Service Date/Time: Sunday, August 20, 2017 19:11 - CONCLUSION: 1. Limited exam due to gaseous bowel. No acute findings. Multiple right renal cysts. Vik Castro MD Assessment and Plan Problem List: (1) Atrial fibrillation ICD Codes: I48.91 - Unspecified atrial fibrillation Status: Acute Plan: new onset AF - rate controlled with metoprolol -elevated CHADS VASC, on lovenox until he calls insurance to see what is covered - 2 day amrik nuc as he had breakfast (2) Systolic heart failure ICD Codes: I50.20 - Unspecified systolic (congestive) heart failure Plan: EF 25-30% by ECHO -stop HCTZ and start lasix -on BB and ARB (3) Nonischemic cardiomyopathy ICD Codes: I42.8 - Other cardiomyopathies (4) DM (diabetes mellitus) ICD Codes: E11.9 - Type 2 diabetes mellitus without complications Status: Chronic (5) Hypertension ICD Codes: I10 - Essential (primary) hypertension Status: Chronic (6) Shortness of breath ICD Codes: R06.02 - Shortness of breath Status: Acute Problem Qualifiers (1) Atrial fibrillation: Qualified Codes: I48.91 - Unspecified atrial fibrillation (2) DM (diabetes mellitus): Cris Desir MD Aug 21, 2017 08:50
[2017-08-21] MEDS ORDERED: HYDROCHLOROTHIAZIDE 25 MG TAB PO SCH (09:00)
[2017-08-21] MEDS ORDERED: LOSARTAN 50 MG TAB PO SCH (09:00)
[2017-08-21] MEDS: METOPROLOL TARTRATE 100 MG TAB PO SCH ×2 (09:37→21:55)
[2017-08-21] MEDS: LOSARTAN 50 MG TAB PO SCH (09:37)
[2017-08-21] MEDS: METOPROLOL TARTRATE 25 MG TAB PO SCH ×2 (09:37→21:55)
[2017-08-21] MEDS: ASPIRIN 81 MG CHEW TAB CHEW SCH (09:37)
[2017-08-21] MEDS: SODIUM CHLORIDE 0.9% FLUSH 10 ML FLUSH IV FLUSH SCH ×2 (09:38→21:56)
[2017-08-21] MEDS: FUROSEMIDE 20 MG TAB PO SCH ×2 (10:16→18:20)
[2017-08-21] MEDS: POTASSIUM CHLORIDE 10 MEQ CONTROLLED RELEASE TAB PO SCH ×2 (10:17→21:55)
--- NOTE | 2017-08-21 11:56 | HHI.FPPN ---
Subjective Remarks Seen and examined at bedside. No acute events overnight. Patient states that his shortness of breath is much improved, he is able to tolerate walking to the bathroom without any oxygenation. (Lizette Leach MD, R1) Objective Vitals Vital Signs Date Time Temp Pulse Resp B/P (MAP) Pulse Ox O2 Delivery O2 Flow Rate FiO2 08/21/17 09:27 91 21 08/21/17 08:02 97.8 80 17 143/88 (106) 97 08/21/17 04:00 97.5 75 20 156/77 (103) 95 08/21/17 04:00 Nasal Cannula 2.00 08/21/17 04:00 70 08/21/17 02:46 94 Nasal Cannula 2.00 08/21/17 00:00 61 08/21/17 00:00 97.5 76 20 136/82 (100) 95 08/21/17 00:00 95 Nasal Cannula 2.00 08/20/17 20:00 97.7 85 20 154/91 (112) 94 08/20/17 20:00 94 Nasal Cannula 2.00 08/20/17 20:00 90 08/20/17 16:00 Nasal Cannula 2.00 08/20/17 15:13 86 08/20/17 15:10 Nasal Cannula 2.00 08/20/17 15:00 97.9 63 18 121/55 (77) 96 08/20/17 14:12 96 08/20/17 13:28 97.7 86 18 159/94 (115) 96 08/20/17 13:00 88 20 151/67 (95) 97 Nasal Cannula 2.00 I/O 08/20/17 08/20/17 08/20/17 08/21/17 08/21/17 08/21/17 07:00 15:00 23:00 07:00 15:00 23:00 Intake Total 120 ml 240 ml Output Total 1000 ml 900 ml Balance -1000 ml 120 ml -660 ml Intake Oral 120 ml 240 ml Output Urine Total 1000 ml 900 ml # Voids 1 1 (Lizette Leach MD, R1) Result Diagram: 08/21/17 0520 08/21/[address] Angiography 08/20/17 0819 Signed Impressions: Service Date/Time: Sunday, August 20, 2017 08:43 - CONCLUSION: Marked elevation right hemidiaphragm with compressive atelectasis right base. Negative for central pulmonary emboli Nonspecific adenopathy. Mikey Stringer MD FACR Chest X-Ray 08/20/17 0642 Signed Impressions: Service Date/Time: Sunday, August 20, 2017 06:48 - CONCLUSION: Stable cardiomegaly. The lungs are clear. Alexandre Jj MD Abdomen Ultrasound 08/20/17 0000 Signed Impressions: Service Date/Time: Sunday, August 20, 2017 19:11 - CONCLUSION: 1. Limited exam due to gaseous bowel. No acute findings. Multiple right renal cysts. Vik Castro MD Objective Remarks GENERAL: This is a well-nourished, well-developed patient, in no apparent distress, sitting in on bed. SKIN: No rashes, ecchymoses. Cool and dry. Small healing lesion on dorsum of Left foot. HEAD: Atraumatic. Normocephalic. EYES: Extraocular motions intact. No scleral icterus. No injection or drainage. ENT: Nose without bleeding, purulent drainage or septal hematoma. NECK: Trachea midline. No JVD or lymphadenopathy. Supple, nontender, no meningeal signs. No hepato CARDIOVASCULAR: Irregular rate and rhythm without murmurs, gallops, or rubs. RESPIRATORY: Clear to auscultation BL. No wheezes, rales, or rhonchi. GASTROINTESTINAL: Abdomen distended, hard. unable to appreciate fluid shift on exam. No hepato-splenomegaly, or palpable masses. No guarding. no hepatojugular reflux noted. MUSCULOSKELETAL: Extremities without clubbing, or cyanosis. improved Right LE edema. No joint tenderness, effusion, or edema noted. No calf tenderness. Negative Homans sign bilaterally. NEUROLOGICAL: Awake and alert. Cranial nerves II through XII intact. Motor and sensory grossly within normal limits. Five out of 5 muscle strength in all muscle groups. Normal speech. (Lizette Leach MD, R1) A/P Assessment and Plan Patient is a 72- year-old Male with PMHx of non-ischemic cardiomyopathy, CHF, HTN, and DM presented to the ED with 1 wk h/o SOB associated with orthopnea. Patient found to be in rate controlled new onset atrial fibrillation on EKG. Admitted for further w/u of SOB CHF exacerbation vs. atrial fib. Pt is stable with slight elevation of BP, O2 saturation of 97 on 2 L NC, other VS WNL. No signs of infection. (Lizette Leach MD, R1) Attending Attestation Patient comfortably lying in bed when he was examined by myself along with the entire medicine team this morning, states he has been up to the bathroom without oxygen. He has been seen by the plater helper and there is apparently a plan for him to contact his insurance company to find out what tier Eliquis, Plavix and Pradaxa are on. We note that his ejection fraction has diminished from what he reported as of May 2017. Plan to discuss the possibility of Entresto with the plater helper. Physical exam is as noted above. Patient seen and examined. Case reviewed and discussed with the resident team. Agree with plan of care as discussed with me and documented in the resident note. (Aliyah Lawson MD) Problem List: (1) Shortness of breath ICD Codes: R06.02 - Shortness of breath Status: Acute Plan: Patient with c/o 1 wk h/o SOB associated with orthopnea. Orthopnea has resolved and SOB has improved significantly per patient -Pt has PMHx of CHF, HTN and non-ischemic cardiomyopathy with pacer- defibrillator in place. Denies history of afib. -Mild Right LE edema, abdominal distention noted on exam. Denies palpitation or dizziness. Reports improvement of SOB on 2L NC. DDX: CHF exacerbation, A. Fib, PE, HI No leukocytosis, troponin x2 neg, BNP 230 EKG: Atrial Fibrillation with aberrant conduction or ventricular premature complexes. Left axis deviation unchanged from previous EKG in 07/2015 CXR: Stable cardiomegaly, lungs are clear CTA: Marked elevation right hemidiaphragm with compressive atelectasis right base. Negative for central pulmonary emboli and specific adenopathy. Echo: EF of 25-30%, global hypokinesis Abdominal u/s: No acute findings, multiple right renal cyst TSH and free T4 WNL -c/w asa -Pt placed on telemetry -Patient with a CHADSVASC SCORE: 4 -Cardiology consulted, appreciate recommendations -HZTZ discontinued and lasix added -Patient to continue on Lovenox until he calls insurance to find out what type of anticoagulation is covered -Will touch base with Dr. Desir about considering adding entresto to medication regimen for improvement of HF (2) CHF (congestive heart failure) ICD Codes: I50.9 - Heart failure, unspecified Status: Chronic Plan: c/w home medication, coreg see chest pain plan above (3) Hypertension ICD Codes: I10 - Essential (primary) hypertension Status: Chronic Plan: c/w home meds monitor VS (4) DM (diabetes mellitus) ICD Codes: E11.9 - Type 2 diabetes mellitus without complications Status: Chronic Plan: Patient has not been checking his BG for the past wk. B on admission BG of 121 this morning Bedside glucose chks low dose sliding scale Last A1C 6.5, per patient continue to monitor (5) History of cardiomyopathy ICD Codes: Z86.79 - Personal history of other diseases of the circulatory system Status: Chronic Plan: Patient with past medical history of nonischemic cardiomyopathy Cardiomegaly noted on chest x-ray -See plan above for SOB (6) Nutrition, metabolism, and development symptoms ICD Codes: R63.8 - Other symptoms and signs concerning food and fluid intake Plan: Fluids: will hold off at this point Electrolytes: replete as needed, will continue to monitor Nutrition: heart healthy DVT ppx: therapeutic Lovenox given (Lizette Leach MD, R1) Problem Qualifiers (1) CHF (congestive heart failure): Qualified Codes: I50.9 - Heart failure, unspecified (2) DM (diabetes mellitus): Lizette Leach MD, R1 Aug 21, 2017 11:55 Aliyah Lawson MD Aug 21, 2017 14:11
--- NOTE | 2017-08-21 13:26 | EKG ---
Date Performed: 08/20/2017 Time Performed: 18:48:39 PTAGE: 72 years EKG: ATRIAL FIBRILLATION MARKED LEFT AXIS DEVIATION POSSIBLE ANTERIOR MYOCARDIAL INFARCTION , OF INDETERMINATE AGE ABNORMAL ECG PREVIOUS TRACING : 08/20/2017 06.38 Since the prior tracing, there has been no significant rodriguez DOCTOR: Fredo Cano Interpretating Date/Time 08/21/2017 13:25:05
[2017-08-21] MEDS: TAMSULOSIN HCL 0.4 MG CAP PO SCH (21:55)
[2017-08-22] VITALS (8 sets, daily range): BP systolic 147–162; BP diastolic 76–95; PULSE 69–98; RESP 18–20; TEMP 97.3–98.2; O2SAT 95–97
[2017-08-22] MEDS: ENOXAPARIN SODIUM 100 MG/ML SYRINGE SQ SCH ×2 (00:39→11:40)
[2017-08-22 06:24] LABS: HEMATOCRIT 42.6 % (39.0-51.0); HEMOGLOBIN 14.5 GM/DL (13.0-17.0); MEAN CELL VOLUME 88.8 FL (80.0-100.0); MEAN CORPUSCULAR HEMOGLOBIN 30.2 PG (27.0-34.0); MEAN PLATELET VOLUME 9.3 FL (7.0-11.0); PLATELET COUNT 130 TH/MM3 (150-450); RED BLOOD COUNT 4.79 MIL/MM3 (4.50-5.90); RED CELL DISTRIBUTION WIDTH 13.1 % (11.6-17.2); WHITE BLOOD COUNT 5.8 TH/MM3 (4.0-11.0)
[2017-08-22 06:46] LABS: CALCIUM 8.7 MG/DL (8.5-10.1); CREATININE 1.13 MG/DL (0.60-1.30)
[2017-08-22] MEDS: INSULIN ASPART SUPPLEMENTAL SCALE SQ SCH ×4 (08:00→21:00)
[2017-08-22] MEDS: ASPIRIN 81 MG CHEW TAB CHEW SCH (08:24)
[2017-08-22] MEDS: LOSARTAN 50 MG TAB PO SCH (08:25)
[2017-08-22] MEDS: SODIUM CHLORIDE 0.9% FLUSH 10 ML FLUSH IV FLUSH SCH ×2 (08:25→21:00)
[2017-08-22] MEDS: METOPROLOL TARTRATE 100 MG TAB PO SCH ×2 (08:25→21:02)
[2017-08-22] MEDS: FUROSEMIDE 20 MG TAB PO SCH ×2 (08:25→16:51)
[2017-08-22] MEDS: METOPROLOL TARTRATE 25 MG TAB PO SCH ×2 (08:25→21:00)
[2017-08-22] MEDS: POTASSIUM CHLORIDE 10 MEQ CONTROLLED RELEASE TAB PO SCH ×2 (08:25→21:00)
[2017-08-22] MEDS ORDERED: REGADENOSON INJ 0.4 MG/5 ML SYR ONE (08:38)
--- NOTE | 2017-08-22 10:09 | RADRPT ---
EXAM DATE/TIME: 08/21/2017 14:36 [facility] COMPARISON: No previous studies available for comparison. INDICATIONS : Chest pain for one day. Atrial fibrillation. DOSE: 30.2 mCi Tc99m Myoview at stress. 30.1 mCi Tc99m Myoview at rest. 0.4 mg Lexiscan STRESS SYMPTOMS: Short of breath. EJECTION FRACTION: 28% MEDICAL HISTORY : Hypertension. Diabetes mellitus type 2. SURGICAL HISTORY : Inguinal hernia repair. ENCOUNTER: Initial ACUITY: 1 day PAIN SCALE: 3/10 LOCATION: chest TECHNIQUE: The patient underwent pharmacologic stress with infusion of prescribed dose. Continuous ECG tracing was monitored during stress. Gated SPECT imaging was performed after stress and conventional SPECT i maging was performed at rest. The examination was performed on a SPECT/CT scanner, both attenuation and non-corrected datasets were reviewed. FINDINGS: DISTRIBUTION: The maximum perfused segment at stress is in the anterolateral wall. PERFUSION STUDY: No significant reversible defects observed. A fixed defect noted at the apex. GATED STUDY: There is global hypokinesia. No dyskinetic segments observed. Significantly reduced ejection fraction at 28%. CONCLUSION: No reversible defects observed to suggest acute ischemia. Global hypokinesia with reduced ejection fr action. RISK CATEGORY: High Alexandre Montgomery Jr., MD on August 22, 2017 at 9:50 Board Certified Radiologist. This report was verified electronically.
--- NOTE | 2017-08-22 11:24 | HHI.FPPN ---
Subjective Remarks Patient seen and examined at bedside. No acute events overnight. Patient stated he had stress test done this morning. Patient states his shortness of breath has greatly improved. Denies any other symptoms. He also stated he was able to speak with his insurance and they will cover Plavix non-generic. Nurse reported that earlier in the morning patient had a 16 beat run of V. tach around 9:50am, patient was asymptomatic at that time, vital signs stable, nurse stated she will be contacting cardiology. Patient asymptomatic during our examination. (Lizette Leach MD, R1) Objective Vitals Vital Signs Date Time Temp Pulse Resp B/P (MAP) Pulse Ox O2 Delivery O2 Flow Rate FiO2 08/22/17 09:35 Nasal Cannula 2.00 08/22/17 08:00 85 08/22/17 04:00 78 08/22/17 03:52 97.9 80 20 153/89 (110) 96 08/22/17 00:00 98.0 78 20 147/85 (105) 95 08/22/17 00:00 69 08/21/17 20:37 Nasal Cannula 2.00 08/21/17 20:00 98.5 85 19 166/86 (112) 96 08/21/17 20:00 Nasal Cannula 2.00 08/21/17 20:00 66 08/21/17 16:02 97.7 72 18 155/81 (105) 95 08/21/17 16:00 71 08/21/17 12:02 97.3 80 17 151/79 (103) 95 08/21/17 12:00 76 I/O 08/21/17 08/21/17 08/21/17 08/22/17 08/22/17 08/22/17 07:00 15:00 23:00 07:00 15:00 23:00 Intake Total 240 ml 600 ml Output Total 900 ml 800 ml 600 ml Balance -660 ml -200 ml -600 ml Intake Oral 240 ml 600 ml Output Urine Total 900 ml 800 ml 600 ml # Bowel Movements 1 (Lizette Leach MD, R1) Result Diagram: 08/22/1752008/22/17 0521 Objective Remarks GENERAL: This is a well-nourished, well-developed patient, in no apparent distress, sitting in on bed. SKIN: No rashes, ecchymoses. Cool and dry. Small healing lesion on dorsum of Left foot. HEAD: Atraumatic. Normocephalic. EYES: Extraocular motions intact. No scleral icterus. No injection or drainage. ENT: Nose without bleeding, purulent drainage or septal hematoma. NECK: Trachea midline. No JVD or lymphadenopathy. Supple, nontender, no meningeal signs. CARDIOVASCULAR: Irregular rate and rhythm without murmurs, gallops, or rubs. RESPIRATORY: Clear to auscultation BL. No wheezes, rales, or rhonchi. GASTROINTESTINAL: Abdomen distended, hard. unable to appreciate fluid shift on exam. No hepato-splenomegaly, or palpable masses. No guarding. no hepatojugular reflux noted. MUSCULOSKELETAL: Extremities without clubbing, or cyanosis. improved Right LE edema. No joint tenderness, effusion, or edema noted. No calf tenderness. Negative Homans sign bilaterally. NEUROLOGICAL: Awake and alert. Cranial nerves II through XII intact. Motor and sensory grossly within normal limits. Five out of 5 muscle strength in all muscle groups. Normal speech. (Lizette Leach MD, R1) A/P Assessment and Plan Patient is a 72- year-old Male with PMHx of non-ischemic cardiomyopathy, CHF, HTN, and DM presented to the ED with 1 wk h/o SOB associated with orthopnea. Patient found to be in rate controlled new onset atrial fibrillation on EKG. Admitted for further w/u of SOB CHF exacerbation vs. atrial fib. Patient is stable. S/p myocardial perfusion scan this morning. Discharge Planning Pending cardiology clearance (Lizette Leach MD, R1) Attending Attestation Patient seen and examined this afternoon. He's not having any shortness of breath, anticipates a walk test. He did contact his insurance company regarding Plavix. Asymptomatic 16 beat run of V. tach, stress test was read as normal. I agree with exam findings above. The patient is able to complete his walk test, and if cardiology approves, we will discharge him today. He is cautioned to be very cognizant of his sodium intake. He will discuss the possibility of taking Entresto when he follows up with his surgical elastic knitter in [place]. Patient seen and examined. Case reviewed and discussed with the resident team. Agree with plan of care as discussed with me and documented in the resident note. (Aliyah Lawson MD) Problem List: (1) Shortness of breath ICD Codes: R06.02 - Shortness of breath Status: Acute Plan: Patient with c/o 1 wk h/o SOB associated with orthopnea. Orthopnea has resolved and SOB has improved significantly per patient -Pt has PMHx of CHF, HTN and non-ischemic cardiomyopathy with pacer- defibrillator in place. Denies previous history afib. Denies palpitation or dizziness. Reports improvement of SOB on 2L NC. No leukocytosis, troponin x2 neg, BNP 230 EKG: Atrial Fibrillation with aberrant conduction or ventricular premature complexes. Left axis deviation unchanged from previous EKG in 07/2015 CXR: Stable cardiomegaly, lungs are clear CTA: Marked elevation right hemidiaphragm with compressive atelectasis right base. Negative for central pulmonary emboli and specific adenopathy. Echo: EF of 25-30%, global hypokinesis Abdominal u/s: No acute findings, multiple right renal cyst TSH and free T4 WNL -c/w asa -Pt placed on telemetry -Patient with a CHADSVASC SCORE: 4 -will order O2 walk test prior to discharge -Cardiology consulted, appreciate recommendations -HZTZ discontinued and lasix added -Patient to continue on Lovenox until he calls insurance to find out what type of anticoagulation is covered. Patient stated his insurance and they will cover Plavix non-generic. -Considered Entresto, however due to inability for appropriate follow-up since patient lives in [place] will defer to his home surgical elastic knitter once he returns home. -Myocardial perfusion scan: No reversible defects observed to suggest acute ischemia. Global hypokinesia with reduced ejection fraction. (2) CHF (congestive heart failure) ICD Codes: I50.9 - Heart failure, unspecified Status: Chronic Plan: c/w home medication, coreg see chest pain plan above (3) Hypertension ICD Codes: I10 - Essential (primary) hypertension Status: Chronic Plan: c/w home meds monitor VS (4) DM (diabetes mellitus) ICD Codes: E11.9 - Type 2 diabetes mellitus without complications Status: Chronic Plan: B on admission Bedside glucose chks low dose sliding scale Last A1C 6.5, per patient continue to monitor (5) History of cardiomyopathy ICD Codes: Z86.79 - Personal history of other diseases of the circulatory system Status: Chronic Plan: Patient with past medical history of nonischemic cardiomyopathy Cardiomegaly noted on chest x-ray -See plan above for SOB (6) Nutrition, metabolism, and development symptoms ICD Codes: R63.8 - Other symptoms and signs concerning food and fluid intake Plan: Fluids: Not indicated at this time Electrolytes: replete as needed, will continue to monitor Nutrition: heart healthy DVT ppx: therapeutic Lovenox given (Lizette Leach MD, R1) Problem Qualifiers (1) CHF (congestive heart failure): Qualified Codes: I50.9 - Heart failure, unspecified (2) DM (diabetes mellitus): Lizette Leach MD, R1 Aug 22, 2017 11:24 Aliyah Lawson MD Aug 22, 2017 15:17
--- NOTE | 2017-08-22 15:41 | PD.CARD.PN ---
Subjective Subjective Remarks Pt without complaints Objective Medications Current Medications Medications (Trade) Dose Ordered Sig/Shana Route Start Time Stop Time Status Last Admin (NS Flush) 2 ml BID IV FLUSH 08/20/17 21:00 08/21/17 21:56 (NS Flush) 2 ml UNSCH PRN IV FLUSH 08/20/17 10:15 (Aspirin Chew) 81 mg DAILY CHEW 08/21/17 09:00 08/21/17 09:37 (Flomax) 0.4 mg HS PO 08/20/17 21:00 08/21/17 21:55 (D50w (Vial) Inj) 50 ml UNSCH PRN IV PUSH 08/20/17 10:30 (Glucagon Inj) 1 mg UNSCH PRN OTHER 08/20/17 10:30 (NovoLOG SUPPLEMENTAL SCALE) 1 ACHS SLIDING SCALE SQ 08/20/17 12:00 08/22/17 11:41 (Lovenox Inj) 97 mg Q12H SQ 08/20/17 12:00 08/22/17 11:40 (Cozaar) 50 mg DAILY PO 08/21/17 09:00 08/21/17 09:37 (Lopressor) 100 mg Q12HR PO 08/20/17 21:00 08/21/17 21:55 (Lopressor) 25 mg Q12HR PO 08/20/17 21:00 08/21/17 21:55 (Lasix) 20 mg BID@09,18 PO 08/21/17 10:00 08/21/17 18:20 (KCl) 10 meq Q12HR PO 08/21/17 10:00 08/21/17 21:55 Vital Signs / I&O Vital Signs Date Time Temp Pulse Resp B/P (MAP) Pulse Ox O2 Delivery O2 Flow Rate FiO2 08/22/17 13:36 96 Nasal Cannula 2.00 08/22/17 12:00 97.6 91 20 147/76 (99) 96 08/22/17 12:00 98 08/22/17 09:35 Nasal Cannula 2.00 08/22/17 08:00 85 08/22/17 04:00 78 08/22/17 03:52 97.9 80 20 153/89 (110) 96 08/22/17 00:00 98.0 78 20 147/85 (105) 95 08/22/17 00:00 69 08/21/17 20:37 Nasal Cannula 2.00 08/21/17 20:00 98.5 85 19 166/86 (112) 96 08/21/17 20:00 Nasal Cannula 2.00 08/21/17 20:00 66 08/21/17 16:02 97.7 72 18 155/81 (105) 95 08/21/17 16:00 71 I/O 08/21/17 08/21/17 08/21/17 08/22/17 08/22/17 08/22/17 07:00 15:00 23:00 07:00 15:00 23:00 Intake Total 240 ml 600 ml Output Total 900 ml 800 ml 600 ml Balance -660 ml -200 ml -600 ml Intake Oral 240 ml 600 ml Output Urine Total 900 ml 800 ml 600 ml # Bowel Movements 1 Physical Exam GENERAL: Well developed, well nourished. No acute distress. HEENT: Jugular venous pressure is normal. CHEST: Lungs clear to auscultation bilaterally. Unlabored respiratory effort. CARDIAC: irregular rate and rhythm without S3, S4, or murmur. ABDOMEN: Soft, nontender, no hepatosplenomegaly. Bowel sounds present. EXTREMITIES: No clubbing, cyanosis, or edema. Laboratory Laboratory Tests Test 08/22/17 05:21 White Blood Count 5.8 TH/MM3 Red Blood Count 4.79 MIL/MM3 Hemoglobin 14.5 GM/DL Hematocrit 42.6 % Mean Corpuscular Volume 88.8 FL Mean Corpuscular Hemoglobin 30.2 PG Mean Corpuscular Hemoglobin Concent 34.0 % Red Cell Distribution Width 13.1 % Platelet Count 130 TH/MM3 Mean Platelet Volume 9.3 FL Blood Urea Nitrogen 28 MG/DL Creatinine 1.13 MG/DL Random Glucose 90 MG/DL Calcium Level 8.7 MG/DL Sodium Level 144 MEQ/L Potassium Level 3.5 MEQ/L Chloride Level 106 MEQ/L Carbon Dioxide Level 33.0 MEQ/L Anion Gap 5 MEQ/L Estimat Glomerular Filtration Rate 64 ML/MIN Imaging Last 72 hours Impressions Myocardial Perfusion Scan Nuc Med 08/21/17 0000 Signed Impressions: Service Date/Time: Monday, August 21, 2017 14:36 - CONCLUSION: No reversible defects observed to suggest acute ischemia. Global hypokinesia with reduced ejection fraction. RISK CATEGORY: High Alexandre Montgomery Jr., MD CT Angiography 08/20/17 0819 Signed Impressions: Service Date/Time: Sunday, August 20, 2017 08:43 - CONCLUSION: Marked elevation right hemidiaphragm with compressive atelectasis right base. Negative for central pulmonary emboli Nonspecific adenopathy. Mikey Stringer MD FACR Chest X-Ray 08/20/17 0642 Signed Impressions: Service Date/Time: Sunday, August 20, 2017 06:48 - CONCLUSION: Stable cardiomegaly. The lungs are clear. Alexandre Jj MD Abdomen Ultrasound 08/20/17 0000 Signed Impressions: Service Date/Time: Sunday, August 20, 2017 19:11 - CONCLUSION: 1. Limited exam due to gaseous bowel. No acute findings. Multiple right renal cysts. Vik Castro MD Assessment and Plan Problem List: (1) Ventricular tachycardia ICD Codes: I47.2 - Ventricular tachycardia Plan: has ICD, asymptomatic -no ischemia on nuc - increase BB (2) Atrial fibrillation ICD Codes: I48.91 - Unspecified atrial fibrillation Status: Acute Plan: new onset AF - rate controlled with metoprolol -elevated CHADS VASC, on lovenox until he calls insurance to see what is covered => eliquis - no ischemia on nuc -[place] (3) Systolic heart failure ICD Codes: I50.20 - Unspecified systolic (congestive) heart failure Plan: EF 25-30% by ECHO 28% by Nuc -doing well on present meds - consider entresto when he can be followed closely he is going on a [place] in a few days (4) Nonischemic cardiomyopathy ICD Codes: I42.8 - Other cardiomyopathies (5) DM (diabetes mellitus) ICD Codes: E11.9 - Type 2 diabetes mellitus without complications Status: Chronic (6) Hypertension ICD Codes: I10 - Essential (primary) hypertension Status: Chronic (7) Shortness of breath ICD Codes: R06.02 - Shortness of breath Status: Acute Problem Qualifiers (1) Atrial fibrillation: Qualified Codes: I48.91 - Unspecified atrial fibrillation (2) Systolic heart failure: Qualified Codes: I50.20 - Unspecified systolic (congestive) heart failure (3) DM (diabetes mellitus): Cris Desir MD Aug 22, 2017 15:41
--- NOTE | 2017-08-22 15:50 | HHI.DCPOC ---
Discharge Care Plan Diagnosis: (1) CHF (congestive heart failure) (2) Atrial fibrillation (3) DM (diabetes mellitus) (4) Ventricular tachycardia Additional Problems Discussed with patient to consider entresto medication for his systolic HF when he can be followed closely by his center line cutter operator back home in [place]. Goals to Promote Your Health * To prevent worsening of your condition and complications * To maintain your health at the optimal level Directions to Meet Your Goals Take your medications as prescribed Follow your dietary instruction Follow activity as directed Keep your appointments as scheduled Take your immunizations and boosters as scheduled If your symptoms worsen call your PCP, if no PCP go to Urgent Care Center or Emergency Room Smoking is Dangerous to Your Health. Avoid second hand smoke Call the 24-hour hour crisis hotline for domestic abuse at Lizette Leach MD, R1 Aug 22, 2017 15:50
[2017-08-22] MEDS ORDERED: COZA50TA PO (15:58)
[2017-08-22] MEDS ORDERED: APIX5TAB PO (15:58)
[2017-08-22] MEDS ORDERED: METO50TA PO (16:00)
[2017-08-22] MEDS: APIXABAN 5 MG TABLET PO SCH (21:01)
[2017-08-22] MEDS: TAMSULOSIN HCL 0.4 MG CAP PO SCH (21:01)
[2017-08-23 00:09] VITALS: BP 158/84; PULSE 86; RESP 17; TEMP 98; O2SAT 97
[2017-08-23 05:40] VITALS: BP 156/96; PULSE 64; RESP 17; TEMP 98.1; O2SAT 98
[2017-08-23] MEDS: INSULIN ASPART SUPPLEMENTAL SCALE SQ SCH ×2 (08:00→12:00)
[2017-08-23 08:11] VITALS: BP 154/83; PULSE 85; RESP 17; TEMP 97.3; O2SAT 95
[2017-08-23] MEDS: SODIUM CHLORIDE 0.9% FLUSH 10 ML FLUSH IV FLUSH SCH (08:12)
[2017-08-23] MEDS: APIXABAN 5 MG TABLET PO SCH (08:16)
[2017-08-23] MEDS: FUROSEMIDE 20 MG TAB PO SCH (08:16)
[2017-08-23] MEDS: LOSARTAN 50 MG TAB PO SCH (08:16)
[2017-08-23] MEDS: POTASSIUM CHLORIDE 10 MEQ CONTROLLED RELEASE TAB PO SCH (08:17)
[2017-08-23] MEDS: METOPROLOL TARTRATE 25 MG TAB PO SCH (08:17)
[2017-08-23] MEDS: METOPROLOL TARTRATE 100 MG TAB PO SCH (08:17)
[2017-08-23] MEDS ORDERED: FURO20TA PO (08:58)
--- NOTE | 2017-08-23 09:58 | HHI.FPPN ---
Subjective Remarks Pt seen and examined this morning. Pt didn't feel comfortable leaving last night due to orthopnea. This morning states he feels better, and able to walk around without any SOB, but just when he lays down flat. Denies any chest pain. Doesn't require oxygen based on O2 walk test. Denies any other symptoms and feels ready to go home today. (Guy Omalley MD) Objective Vitals Vital Signs Date Time Temp Pulse Resp B/P (MAP) Pulse Ox O2 Delivery O2 Flow Rate FiO2 08/23/17 08:11 97.3 85 17 154/83 (106) 95 08/23/17 05:40 98.1 64 17 156/96 (116) 98 08/23/17 04:00 Nasal Cannula 2.00 08/23/17 00:09 98.0 86 17 158/84 (108) 97 08/23/17 00:00 Nasal Cannula 2.00 08/22/17 20:00 98.2 86 18 162/95 (117) 96 08/22/17 20:00 Nasal Cannula 2.00 08/22/17 16:00 97.3 77 20 147/83 (104) 97 08/22/17 16:00 89 08/22/17 13:36 96 Nasal Cannula 2.00 08/22/17 12:00 97.6 91 20 147/76 (99) 96 08/22/17 12:00 98 I/O 08/22/17 08/22/17 08/22/17 08/23/17 08/23/17 08/23/17 07:00 15:00 23:00 07:00 15:00 23:00 Intake Total 720 ml Output Total 600 ml 825 ml 1325 ml Balance -600 ml -105 ml -1325 ml Intake Oral 720 ml Output Urine Total 600 ml 825 ml 1325 ml # Bowel Movements 1 (Guy Omalley MD) Result Diagram: 08/22/17 0521 08/22/17 0521 Imaging Last Impressions Myocardial Perfusion Scan Nuc Med 08/21/17 0000 Signed Impressions: Service Date/Time: Monday, August 21, 2017 14:36 - CONCLUSION: No reversible defects observed to suggest acute ischemia. Global hypokinesia with reduced ejection fraction. RISK CATEGORY: High Alexandre Montgomery Jr., MD CT Angiography 08/20/17 0819 Signed Impressions: Service Date/Time: Sunday, August 20, 2017 08:43 - CONCLUSION: Marked elevation right hemidiaphragm with compressive atelectasis right base. Negative for central pulmonary emboli Nonspecific adenopathy. Mikey Stringer MD FACR Chest X-Ray 08/20/17 0642 Signed Impressions: Service Date/Time: Sunday, August 20, 2017 06:48 - CONCLUSION: Stable cardiomegaly. The lungs are clear. Alexandre Jj MD Abdomen Ultrasound 08/20/17 0000 Signed Impressions: Service Date/Time: Sunday, August 20, 2017 19:11 - CONCLUSION: 1. Limited exam due to gaseous bowel. No acute findings. Multiple right renal cysts. Vik Castro MD Objective Remarks GENERAL: This is a well-nourished, well-developed patient, in no apparent distress, sitting in on bed. SKIN: No rashes, ecchymoses. Cool and dry. Small healing lesion on dorsum of Left foot. CARDIOVASCULAR: Irregular rate and rhythm without murmurs, gallops, or rubs. RESPIRATORY: Clear to auscultation BL. No wheezes, rales, or rhonchi. GASTROINTESTINAL: Abdomen distended. No hepato-splenomegaly, or palpable masses. MUSCULOSKELETAL: Extremities without clubbing, or cyanosis. no edema. NEUROLOGICAL: Awake and alert. Motor and sensory grossly within normal limits. Normal speech. (Guy Omalley MD) A/P Assessment and Plan Patient is a 72- year-old Male with PMHx of non-ischemic cardiomyopathy, CHF, HTN, and DM presented to the ED with 1 wk h/o SOB associated with orthopnea. Patient found to be in rate controlled new onset atrial fibrillation on EKG. Admitted for further w/u of SOB CHF exacerbation vs. atrial fib. Patient is stable. S/p myocardial perfusion scan this morning. Discharge Planning Pending cardiology clearance (Guy Omalley MD) Attending Attestation Spoke with patient and ; is very anxious and reports that her can't complete a sentence or lie down without O2. Patient was in the BR without his 02, came back to room and sat on bed without O2. has passed his walk test. Plans to go on a cruise on Monday and is very anxious about going without O2. We will provide a script of O2 if pt. wants to purchase it. Patient seen and examined. Case reviewed and discussed with the resident team. Agree with plan of care as discussed with me and documented in the resident note. (Aliyah Lawson MD) Problem List: (1) Shortness of breath ICD Codes: R06.02 - Shortness of breath Status: Acute Plan: Patient with c/o 1 wk h/o SOB associated with orthopnea. Pt has PMHx of CHF, HTN and non-ischemic cardiomyopathy with pacer- defibrillator in place. Denies previous history afib. No leukocytosis, troponin x2 neg, BNP 230 on admission EKG: Atrial Fibrillation with aberrant conduction or ventricular premature complexes. Left axis deviation unchanged from previous EKG in 07/2015 CXR: Stable cardiomegaly, lungs are clear CTA: Marked elevation right hemidiaphragm with compressive atelectasis right base. Negative for central pulmonary emboli and specific adenopathy. Echo: EF of 25-30%, global hypokinesis TSH and free T4 WNL -c/w asa -Pt placed on telemetry -Patient with a CHADSVASC SCORE: 4 -Cardiology consulted, appreciate recommendations -Myocardial perfusion scan: no reversible defects. 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 -Myocardial perfusion scan: No reversible defects observed to suggest acute ischemia. Global hypokinesia with reduced ejection fraction. (2) CHF (congestive heart failure) ICD Codes: I50.9 - Heart failure, unspecified Status: Chronic Plan: c/w home medication, coreg see plan above (3) Hypertension ICD Codes: I10 - Essential (primary) hypertension Status: Chronic Plan: c/w home meds monitor VS (4) DM (diabetes mellitus) ICD Codes: E11.9 - Type 2 diabetes mellitus without complications Status: Chronic Plan: B on admission Bedside glucose chks low dose sliding scale Last A1C 6.5, per patient continue to monitor (5) History of cardiomyopathy ICD Codes: Z86.79 - Personal history of other diseases of the circulatory system Status: Chronic Plan: Patient with past medical history of nonischemic cardiomyopathy Cardiomegaly noted on chest x-ray -See plan above for SOB (6) Nutrition, metabolism, and development symptoms ICD Codes: R63.8 - Other symptoms and signs concerning food and fluid intake Plan: Fluids: Not indicated at this time Electrolytes: replete as needed, will continue to monitor Nutrition: heart healthy DVT ppx: Eliquis (Guy Omalley MD) Problem Qualifiers (1) CHF (congestive heart failure): Qualified Codes: I50.23 - Acute on chronic systolic (congestive) heart failure (2) Hypertension: Qualified Codes: I10 - Essential (primary) hypertension (3) DM (diabetes mellitus): Guy Omalley MD Aug 23, 2017 09:58 Aliyah Lawson MD Aug 23, 2017 14:57
[2017-08-23] MEDS ORDERED: OXYGENTANK NAS.CANULA ×2 (10:11→11:40)
[2017-08-23 12:11] VITALS: BP 140/89; PULSE 75; RESP 17; TEMP 97.2; O2SAT 96
== END 2017-08-23 13:13 | disposition home or self-care (01) | DRG 308 ==
LOC: NEPE 06:21 → NEDA 08:52 → N04A 14:51
PROVIDERS: ADMIT Family Medicine; ATTEND Family Medicine
DX: I48.91 Unspecified atrial fibrillation (principal); I50.23 Acute on chronic systolic (congestive) heart failure; I47.2 Ventricular tachycardia; J98.11 Atelectasis; I42.8 Other cardiomyopathies; E11.9 Type 2 diabetes mellitus without complications; N28.1 Cyst of kidney, acquired; I11.0 Hypertensive heart disease with heart failure; M51.36 Other intervertebral disc degeneration, lumbar region; M48.00 Spinal stenosis, site unspecified; R59.9 Enlarged lymph nodes, unspecified; H35.30 Unspecified macular degeneration; Z79.84 Long term (current) use of oral hypoglycemic drugs; Z82.49 Family history of ischemic heart disease and other diseases of the circulatory system; Z87.891 Personal history of nicotine dependence; Z88.0 Allergy status to penicillin; Z95.810 Presence of automatic (implantable) cardiac defibrillator; Z96.651 Presence of right artificial knee joint; Z96.642 Presence of left artificial hip joint
CPT/HCPCS: 71045; 71275; 76700; 78452; 80048; 82550; 82552; 82948; 83880; 84439; 84443; 84484; 85025; 85027; 85610; 85730; 93005; 93017; 93306; 94618; 96374; A9502; J1650; J1815; J1940; J2785; Q9967

== ENCOUNTER 2017-09-11 06:27 | Emergency (ER) | payer MEDICARE ==
[~2017-09-11] VITALS: Ht 172.7 cm; Wt 95.0 kg
[~2017-09-11 06:27] MED LIST changes: +APIX5TAB PO; -ARIC5TAB PO; -ASPI81TA82 PO; +B-122000 PO; -B12-1CHW CHEW; -CORE25TA PO; +COZA50TA PO; +FURO20TA PO; -HYZA100T6 PO; -METF-324 PO; +METF1000 PO; +METO50TA PO; +OXYGENTANK NAS.CANULA; -PRESCAP5 PO; +PROM6.254 PO; -SPIR25 PO; -TAB-TAB PO; +TAMS5CAP PO
[2017-09-11 06:30] VITALS: BP 183/80; PULSE 101; RESP 20; TEMP 97.3; O2SAT 98
[2017-09-11] MEDS ORDERED: SODIUM CHLORIDE 0.9% FLUSH 10 ML FLUSH IVF PRN (07:15)
[2017-09-11 07:30] VITALS: BP 139/96; PULSE 89; RESP 24; TEMP 97.8; O2SAT 96
[2017-09-11] MEDS ORDERED: POTA10CA PO ×2 (07:35→09:54)
--- NOTE | 2017-09-11 07:42 | RADRPT ---
EXAM DATE/TIME: 09/11/2017 07:23 [facility] COMPARISON: CHEST SINGLE AP, August 20, 2017, 6:48. INDICATIONS : Short of breath with wheezing. MEDICAL HISTORY : Congestive heart failure. Myocardial infarction. SURGICAL HISTORY : Pacemaker. ENCOUNTER: Initial ACUITY: 2 days PAIN SCORE: 0/10 LOCATION: Bilateral chest FINDINGS: There is a pacing/AICD device in place from the left subclavian approach. The heart size is enlarged. The lungs are clear. A significant effusion is not seen. There is some persistent elevation of the r ight hemidiaphragm. CONCLUSION: Cardiomegaly. Jasen Hearn MD on September 11, 2017 at 7:39 Board Certified Radiologist. This report was verified electronically.
[2017-09-11] MEDS ORDERED: NITROGLYCERIN 2% OINT 1 GM PACKET TOPICAL ONE (07:45)
[2017-09-11] MEDS ORDERED: FUROSEMIDE 100 MG/10 ML VIAL IV PUSH ONE (07:45)
[2017-09-11 07:48] LABS: AUTOMATED NEUTROPHIL # 5.5 TH/MM3 (1.8-7.7); BASOPHIL % 0.7 % (0.0-2.0); EOSINOPHIL # 0.2 TH/MM3 (0-0.4); EOSINOPHIL % 2.4 % (0.0-4.0); HEMATOCRIT 47.2 % (39.0-51.0); LYMPH % 13.2 % (9.0-44.0); MEAN CELL VOLUME 89.4 FL (80.0-100.0); MEAN CORPUSCULAR HEMOGLOBIN 30.2 PG (27.0-34.0); MEAN CORPUSCULAR HGB CONC 33.8 % (32.0-36.0); MEAN PLATELET VOLUME 10.4 FL (7.0-11.0); MONO % 9.7 % (0.0-8.0); MONOCYTE # 0.7 TH/MM3 (0-0.9); PLATELET COUNT 160 TH/MM3 (150-450); RED BLOOD COUNT 5.28 MIL/MM3 (4.50-5.90); RED CELL DISTRIBUTION WIDTH 13.5 % (11.6-17.2); WHITE BLOOD COUNT 7.5 TH/MM3 (4.0-11.0)
[2017-09-11 07:56] LABS: PROTHROMBIN TIME - PATIENT 10.7 SEC (9.8-11.6)
[2017-09-11 07:58] LABS: INTERNATIONAL NORMALIZED RATIO 1.1 RATIO
[2017-09-11 08:05] LABS: ALT (GPT) 26 U/L (12-78)
[2017-09-11 08:13] LABS: ALBUMIN 3.7 GM/DL (3.4-5.0); ALKALINE PHOSPHATASE 82 U/L (45-117); AST (GOT) 25 U/L (15-37); BICARBONATE 25.2 MEQ/L (21.0-32.0); BLOOD UREA NITROGEN 22 MG/DL (7-18); CALCIUM 9.2 MG/DL (8.5-10.1); CHLORIDE 108 MEQ/L (98-107); CREATININE 1.25 MG/DL (0.60-1.30); GLOMERULAR FILTRATION RATE 57 ML/MIN (>89); GLUCOSE,RANDOM 146 MG/DL (74-106); MAGNESIUM 1.9 MG/DL (1.5-2.5); SODIUM (NA) 142 MEQ/L (136-145); TOTAL BILIRUBIN ADULT 1.5 MG/DL (0.2-1.0); TOTAL PROTEIN 7.5 GM/DL (6.4-8.2); TROPONIN I 0.04 NG/ML (0.02-0.05)
--- NOTE | 2017-09-11 08:24 | PD ---
HPI . Dyspnea Chief Complaint: Respiratory Symptoms Time Seen by Provider: 07:21 Travel History International Travel<30 days: No Contact w/Intl Traveler<30days: No Traveled to known affect area: No History of Present Illness HPI This patient presents with a chief complaint of dyspnea. He has been dyspneic for 3 or more weeks. He was in the hospital in early August for same and states that he got better but not completely well. He states that his symptoms became worse again 3 or 4 days ago. His symptoms are exacerbated by laying down and walking around if he walks very far. Associated symptoms include a mild cough but no sputum, no fever and no chest pain. He feels that his cough is related to allergies. He reports compliance with his medications. 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 ) High Cholesterol: No Chest Pain: No Congestive Heart Failure: Yes COPD: No Diabetes: Yes (Metformin) Patient Takes Glucophage: No Diminished Hearing: No Gastrointestinal Disorders: Yes (ELEVATED LFT) GERD: No Genitourinary: No Hiatal Hernia: No Hypertension: Yes Immune Disorder: No Implanted Vascular Access Dvce: Yes Musculoskeletal: Yes (DDD) Neurologic: No Psychiatric: No Reproductive: Yes (low sperm count) Respiratory: Yes Immunizations Current: Yes Sleep Apnea: No Ulcer: No Past Surgical History Abdominal Surgery: Yes (UMBILICAL HERNIA REPAIRED) AICD: Yes ([employer] DEBRILLATOR. SERIAL#[id number], MODEL#[id number]) Arteriovenous Shunt: No Body Medical Devices: [employer] VR DEFIB Cardiac Surgery: Yes (DEFIBRILLATOR PLACEMENT) Eye Surgery: Yes (BILAT CATARACTS) Genitourinary Surgery: Yes (VASECTOMY) Insulin Pump: No Joint Replacement: Yes (LTH) Oral Surgery: Yes (SALIVARY GLAND) Pacemaker: Yes Other Surgery: Yes (HEMORROIDECTOMY,STOMACH WALL REPAIR,VARICOSE VEIN ) Social History Alcohol Use: Yes (OCC) Tobacco Use: No Substance Use: No Allergies-Medications (Allergen,Severity, Reaction): Coded Allergies: penicillin G (Verified Allergy, Severe, SYNCOPE, 09/11/17) Reported Meds & Prescriptions Reported Meds & Active Scripts Active Furosemide 20 Mg Tab 20 Mg PO BID Metoprolol Tartrate 50 Mg Tab 50 Mg PO Q12HR Cozaar (Losartan Potassium) 50 Mg Tab 50 Mg PO DAILY Eliquis (Apixaban) 5 Mg Tab 5 Mg PO BID Reported Potassium Chloride ER (Potassium Chloride) 10 Meq Cap 10 Meq PO DAILY Promethazine Liq (Promethazine HCl) 6.25 Mg/5 Ml Syrp 12.5 Mg PO Q6H PRN Metformin (Metformin HCl) 1,000 Mg Tab 1,000 Mg PO DAILY With a meal Flomax (Tamsulosin HCl) 0.4 Mg Cap 0.4 Mg PO HS B-12 (Cyanocobalamin) 2,000 Mcg Tab Unknown Dose PO DAILY Review of Systems Except as stated in HPI: all other systems reviewed are Neg Cardiovascular: No: Chest Pain or Discomfort, Palpitations Respiratory: Positive: Cough, Shortness of Breath Musculoskeletal: No: Edema Physical Exam Narrative GENERAL: He is sitting on the side of the bed. SKIN: warm/dry. HEAD: Normocephalic. Atraumatic. EYES: Pupils equal and round. No scleral icterus. No injection or drainage. ENT: No nasal bleeding or discharge. Mucous membranes pink and moist. NECK: Trachea midline. Full range of motion without pain.. CARDIOVASCULAR: Irregular rhythm with a controlled rate. RESPIRATORY: No accessory muscle use. Bibasilar rales. Breath sounds equal bilaterally. MUSCULOSKELETAL: No obvious deformities. No peripheral edema. NEUROLOGICAL: Awake and alert. No obvious cranial nerve deficits. Motor grossly within normal limits. Normal speech. PSYCHIATRIC: Appropriate mood and affect; insight and judgment normal. Data Data Last Documented VS Vital Signs Date Time Temp Pulse Resp B/P (MAP) Pulse Ox O2 Delivery O2 Flow Rate FiO2 09/11/17 09:37 96 21 09/11/17 09:25 97.9 86 20 149/86 (107) Room Air Orders Orders Complete Blood Count With Diff (09/11/17 07:03) Comprehensive Metabolic Panel (09/11/17 07:03) B-Type Natriuretic Peptide (09/11/17 07:03) Act Partial Throm Time (Ptt) (09/11/17 07:03) Prothrombin Time / Inr (Pt) (09/11/17 07:03) Magnesium (Mg) (09/11/17 07:03) Ckmb (Isoenzyme) Profile (09/11/17 07:03) Troponin I (09/11/17 07:03) Iv Access Insert/Monitor (09/11/17 07:03) Electrocardiogram (09/11/17 07:03) Ecg Monitoring (09/11/17 07:03) Oximetry (09/11/17 07:03) Oxygen Administration (09/11/17 07:03) Chest, Single Ap (09/11/17 07:03) Sodium Chloride 0.9% Flush (Ns Flush) (09/11/17 07:15) Furosemide Inj (Lasix Inj) (09/11/17 07:45) Nitroglycerin 2% Oint (Nitroglycerin 2% (09/11/17 07:45) Arterial Blood Gas (Abg) (09/11/17 ) Labs Laboratory Tests Test 09/11/17 07:30 09/11/17 09:13 White Blood Count 7.5 TH/MM3 Red Blood Count 5.28 MIL/MM3 Hemoglobin 16.0 GM/DL Hematocrit 47.2 % Mean Corpuscular Volume 89.4 FL Mean Corpuscular Hemoglobin 30.2 PG Mean Corpuscular Hemoglobin Concent 33.8 % Red Cell Distribution Width 13.5 % Platelet Count 160 TH/MM3 Mean Platelet Volume 10.4 FL Neutrophils (%) (Auto) 74.0 % Lymphocytes (%) (Auto) 13.2 % Monocytes (%) (Auto) 9.7 % Eosinophils (%) (Auto) 2.4 % Basophils (%) (Auto) 0.7 % Neutrophils # (Auto) 5.5 TH/MM3 Lymphocytes # (Auto) 1.0 TH/MM3 Monocytes # (Auto) 0.7 TH/MM3 Eosinophils # (Auto) 0.2 TH/MM3 Basophils # (Auto) 0.0 TH/MM3 CBC Comment DIFF FINAL Differential Comment Prothrombin Time 10.7 SEC Prothromb Time International Ratio 1.1 RATIO Activated Partial Thromboplast Time 27.5 SEC Blood Urea Nitrogen 22 MG/DL Creatinine 1.25 MG/DL Random Glucose 146 MG/DL Total Protein 7.5 GM/DL Albumin 3.7 GM/DL Calcium Level 9.2 MG/DL Magnesium Level 1.9 MG/DL Alkaline Phosphatase 82 U/L Aspartate Amino Transf (AST/SGOT) 25 U/L Alanine Aminotransferase (ALT/SGPT) 26 U/L Total Bilirubin 1.5 MG/DL Sodium Level 142 MEQ/L Potassium Level 4.4 MEQ/L Chloride Level 108 MEQ/L Carbon Dioxide Level 25.2 MEQ/L Anion Gap 9 MEQ/L Estimat Glomerular Filtration Rate 57 ML/MIN Total Creatine Kinase 75 U/L Troponin I 0.04 NG/ML B-Type Natriuretic Peptide 228 PG/ML Blood Gas Puncture Site LT RADIAL Blood Gas Patient Temperature 98.6 Blood Gas HCO3 26 mmol/L Blood Gas Base Excess 1.9 mmol/L Blood Gas Oxygen Saturation 94 % Arterial Blood pH 7.43 Arterial Blood Partial Pressure CO2 40 mmHg Arterial Blood Partial Pressure O2 83 mmHg Arterial Blood Oxygen Content 21.2 Vol % Arterial Blood Carboxyhemoglobin 1.4 % Arterial Blood Methemoglobin 0.7 % Blood Gas Hemoglobin 15.9 G/DL Oxygen Delivery Device RA MARTELL Medical Decision Making Medical Screen Exam Complete: Yes Emergency Medical Condition: Yes Medical Record Reviewed: Yes (Patient was admitted here on 08/20 with new onset A. fib and CHF. He was discharged on Eliquis and Lasix 20 mg twice a day. Other medical problems include hypertension, diabetes and nonischemic cardiomyopathy.) Interpretation(s) EKG shows atrial fibrillation with a rate of 107. No acute STT wave changes. EKG is unchanged from previous. Differential Diagnosis Differential diagnosis of dyspnea includes but is not limited to congestive heart failure, pneumonia, wheezing, pneumothorax, pulmonary embolism Narrative Course This patient presents complaining with dyspnea. He has a history of atrial fibrillation and cardiomyopathy. Exam shows bibasilar rales. The patient was treated with Lasix 80 mg IV and Nitropaste 1 inch. Chest x-ray shows cardiomegaly but clear lungs. The chest x-ray was independently reviewed by me. ABG Test 09/11/17 09:13 Arterial Blood Carboxyhemoglobin 1.4 % Arterial Blood Methemoglobin 0.7 % Arterial Blood Oxygen Content 21.2 Vol % H Arterial Blood Partial Pressure CO2 40 mmHg Arterial Blood Partial Pressure O2 83 mmHg Arterial Blood pH 7.43 H Blood Gas Base Excess 1.9 mmol/L Blood Gas HCO3 26 mmol/L Blood Gas Hemoglobin 15.9 G/DL Blood Gas Oxygen Saturation 94 % Oxygen Delivery Device CBC & BMP Diagram 09/11/17 07:30 Total Protein 7.5, Albumin 3.7, Calcium Level 9.2, Magnesium Level 1.9, Alkaline Phosphatase 82, Aspartate Amino Transf (AST/SGOT) 25, Alanine Aminotransferase (ALT/SGPT) 26, Total Bilirubin 1.5 H trop 0.04 BNP 228 This patient presents with dyspnea. His radiographic and laboratory workup is benign. I feel that he is safe for discharge to home. Diagnosis Primary Impression: Shortness of breath Patient Instructions: Dyspnea (DC), General Instructions Scripts Potassium Chloride ER (Potassium Chloride ER) 10 Meq Cap 20 MEQ PO DAILY for Electrolyte Replacement, #30 CAP 0 Refills Prov: Lisa Gaxiola MD 09/11/17 Furosemide (Furosemide) 20 Mg Tab 40 MG PO BID, #60 TAB 1 Refill Prov: Lisa Gaxiola MD 09/11/17 Disposition: 01 DISCHARGE HOME Condition: Stable Lisa Gaxiola MD Sep 11, 2017 08:24
[2017-09-11 09:25] VITALS: BP 149/86; PULSE 86; RESP 20; TEMP 97.9; O2SAT 96
[2017-09-11 09:37] VITALS: O2SAT 96
[2017-09-11] MEDS ORDERED: FURO20TA PO (09:54)
[2017-09-11 10:15] VITALS: BP 138/81; TEMP 97.9
--- NOTE | 2017-09-12 00:12 | EKG ---
Date Performed: 09/11/2017 Time Performed: 06:44:24 PTAGE: 72 years EKG: ATRIAL FIBRILLATION WITH RAPID VENTRICULAR RESPONSE MARKED LEFT AXIS DEVIATION MINIMAL VOLT AGE CRITERIA FOR LVH, CONSIDER NORMAL VARIANT ANTEROSEPTAL MYOCARDIAL INFARCTION ABNORMAL ECG NO PREVIOUS TRACING DOCTOR: Elif Clemons Interpretating Date/Time 09/12/2017 00:05:14
== END 2017-09-11 10:15 | disposition home or self-care (01) ==
LOC: NEPC 06:27
DX: R06.02 Shortness of breath (principal); I42.9 Cardiomyopathy, unspecified; I11.0 Hypertensive heart disease with heart failure; I50.9 Heart failure, unspecified; E11.9 Type 2 diabetes mellitus without complications; Z79.01 Long term (current) use of anticoagulants; Z79.84 Long term (current) use of oral hypoglycemic drugs
CPT/HCPCS: 36600; 71045; 80053; 82550; 82805; 83735; 83880; 84484; 85025; 85610; 85730; 93005; 96374; 99285; J1940

== ENCOUNTER 2017-09-16 11:58 | Emergency (ER) | payer MEDICARE ==
[~2017-09-16] VITALS: Ht 172.7 cm; Wt 95.0 kg
[~2017-09-16 11:58] MED LIST changes: -OXYGENTANK NAS.CANULA; +POTA10CA PO
[2017-09-16 12:02] VITALS: BP 141/73; PULSE 101; RESP 20; TEMP 97.5; O2SAT 93
[2017-09-16] MEDS ORDERED: SODIUM CHLORIDE 0.9% FLUSH 10 ML FLUSH IVF PRN (12:15)
--- NOTE | 2017-09-16 12:44 | PD ---
Physical Exam Date Seen by Provider: Sep 16, 2017 Narrative This patient presents with shortness of breath and especially orthopnea. This. His workups have been basically negative. He does have a very poor ejection fraction. Data Data Last Documented VS Vital Signs Date Time Temp Pulse Resp B/P (MAP) Pulse Ox O2 Delivery O2 Flow Rate FiO2 09/16/17 12:02 97.5 101 20 141/73 (95) 93 Orders Orders Complete Blood Count With Diff (09/16/17 12:15) Comprehensive Metabolic Panel (09/16/17 12:15) B-Type Natriuretic Peptide (09/16/17 12:15) Act Partial Throm Time (Ptt) (09/16/17 12:15) Prothrombin Time / Inr (Pt) (09/16/17 12:15) Magnesium (Mg) (09/16/17 12:15) Ckmb (Isoenzyme) Profile (09/16/17 12:15) Troponin I (09/16/17 12:15) Iv Access Insert/Monitor (09/16/17 12:15) Electrocardiogram (09/16/17 12:15) Ecg Monitoring (09/16/17 12:15) Oximetry (09/16/17 12:15) Oxygen Administration (09/16/17 12:15) Chest, Single Ap (09/16/17 12:15) Sodium Chloride 0.9% Flush (Ns Flush) (09/16/17 12:15) MDM Supervised Visit with IVETT: Yes Narrative Course I, Dr. Gaxiola, have reviewed the advance practice practitioner's documentation and am in agreement, met with the patient face to face, made the diagnosis, and the medical decision making was done by me. *My assessment and Findings: Lungs are clear and his sats are in the mid upper 90s. Please see Bing Arana NP's note for results of laboratory and radiographic evaluation, ED course, final diagnosis and disposition Lisa Gaxiola MD Sep 16, 2017 12:44
[2017-09-16 13:00] VITALS: BP 133/70; PULSE 90; RESP 21; O2SAT 95
--- NOTE | 2017-09-16 13:01 | PD ---
HPI Chief Complaint: Respiratory Symptoms Time Seen by Provider: 12:10 Travel History International Travel<30 days: No Contact w/Intl Traveler<30days: No Traveled to known affect area: No History of Present Illness HPI Patient is a 72-year-old male presenting to emergency room for evaluation of shortness of breath. Patient states this started near the end of July, he reports being hospitalized in the beginning of August for 3 days. He also reports being in the emergency department last week with the same symptoms. He reports that his Lasix and potassium was just doubled. Despite this he reports a 4 pound weight gain in the last 2 days. He reports compliance with medications, decrease sodium intake and fluid restriction. Patient denies any chest pain, nausea, vomiting. He does report orthopnea stating that he usually lays on his side but he is unable to. Patient states he normally can ride his bike for several hours however he was only able to write it for 30 minutes yesterday. He also states that when he talks he has to stop his sentences because he gets winded. Symptom onset was several weeks ago, symptom severity is mild to moderate, there are no alleviating factors. Patient does not have a primary care doctor in the area, he is followed by Dr. Desir for cardiology. PFSH Past Medical History Hx Anticoagulant Therapy: Yes (ASA 81 PO DAILY) Arthritis: Yes Atrial Fibrillation: Yes Cardiomyopathy: Yes Congestive Heart Failure: Yes Diabetes: Yes Patient Takes Glucophage: Yes Hypertension: Yes Reproductive: Yes (low sperm count) Respiratory: Yes Immunizations Current: Yes Ulcer: No Past Surgical History Abdominal Surgery: Yes (UMBILICAL HERNIA REPAIRED) AICD: Yes ([employer] DEBRILLATOR. SERIAL#[id number], MODEL#[id number]) Eye Surgery: Yes (BILAT CATARACTS) Genitourinary Surgery: Yes (VASECTOMY) Joint Replacement: Yes (LTH) Oral Surgery: Yes (SALIVARY GLAND) Pacemaker: Yes Other Surgery: Yes (HEMORROIDECTOMY,STOMACH WALL REPAIR,VARICOSE VEIN ) Social History Alcohol Use: Yes (OCC) Tobacco Use: No Substance Use: No Allergies-Medications (Allergen,Severity, Reaction): Coded Allergies: penicillin G (Verified Allergy, Severe, SYNCOPE, 09/11/17) Reported Meds & Prescriptions Reported Meds & Active Scripts Active Potassium Chloride ER (Potassium Chloride) 10 Meq Cap 20 Meq PO DAILY Furosemide 20 Mg Tab 40 Mg PO BID Metoprolol Tartrate 50 Mg Tab 50 Mg PO Q12HR Cozaar (Losartan Potassium) 50 Mg Tab 50 Mg PO DAILY Eliquis (Apixaban) 5 Mg Tab 5 Mg PO BID Reported Promethazine Liq (Promethazine HCl) 6.25 Mg/5 Ml Syrp 12.5 Mg PO Q6H PRN Metformin (Metformin HCl) 1,000 Mg Tab 1,000 Mg PO DAILY With a meal Flomax (Tamsulosin HCl) 0.4 Mg Cap 0.4 Mg PO HS B-12 (Cyanocobalamin) 2,000 Mcg Tab Unknown Dose PO DAILY Review of Systems Except as stated in HPI: all other systems reviewed are Neg Eyes: No: Blurred Vision HENT: No: Headaches Cardiovascular: No: Chest Pain or Discomfort, Edema Respiratory: Positive: Shortness of Breath, Orthopnea Gastrointestinal: Positive: Other (Abdominal bloating), No: Nausea, Abdominal Pain Musculoskeletal: No: Myalgias Neurologic: No: Weakness, Dizziness, Syncope, Focal Abnormalities Physical Exam Narrative GENERAL: Well-developed, well-nourished, alert elderly male. Presenting in no acute distress. SKIN: Warm and dry. HEAD: Atraumatic. Normocephalic. EYES: Pupils equal and round. No scleral icterus. No injection or drainage. ENT: No nasal bleeding or discharge. Mucous membranes pink and moist. NECK: Trachea midline. No JVD. CARDIOVASCULAR: Irregularly irregular RESPIRATORY: No accessory muscle use. Clear to auscultation. Breath sounds equal bilaterally, diminished in bases. GASTROINTESTINAL: Abdomen soft, non-tender, mildly distended. Hepatic and splenic margins not palpable. Positive bowel sounds, no rebound, no guarding MUSCULOSKELETAL: Extremities without clubbing, cyanosis, or edema. No obvious deformities. NEUROLOGICAL: Awake and alert. No obvious cranial nerve deficits. Motor grossly within normal limits. Five out of 5 muscle strength in the arms and legs. Normal speech. PSYCHIATRIC: Appropriate mood and affect; insight and judgment normal. Data Data Last Documented VS Vital Signs Date Time Temp Pulse Resp B/P (MAP) Pulse Ox O2 Delivery O2 Flow Rate FiO2 09/16/17 15:07 95 Nasal Cannula 2.00 09/16/17 15:00 84 21 149/83 (105) 09/16/17 12:02 97.5 Orders Orders Complete Blood Count With Diff (09/16/17 12:15) Comprehensive Metabolic Panel (09/16/17 12:15) B-Type Natriuretic Peptide (09/16/17 12:15) Act Partial Throm Time (Ptt) (09/16/17 12:15) Prothrombin Time / Inr (Pt) (09/16/17 12:15) Magnesium (Mg) (09/16/17 12:15) Ckmb (Isoenzyme) Profile (09/16/17 12:15) Troponin I (09/16/17 12:15) Iv Access Insert/Monitor (09/16/17 12:15) Electrocardiogram (09/16/17 12:15) Ecg Monitoring (09/16/17 12:15) Oximetry (09/16/17 12:15) Oxygen Administration (09/16/17 12:15) Chest, Single Ap (09/16/17 12:15) Sodium Chloride 0.9% Flush (Ns Flush) (09/16/17 12:15) Labs Laboratory Tests Test 09/16/17 12:45 White Blood Count 6.8 TH/MM3 Red Blood Count 5.14 MIL/MM3 Hemoglobin 15.7 GM/DL Hematocrit 45.9 % Mean Corpuscular Volume 89.2 FL Mean Corpuscular Hemoglobin 30.6 PG Mean Corpuscular Hemoglobin Concent 34.3 % Red Cell Distribution Width 13.7 % Platelet Count 158 TH/MM3 Mean Platelet Volume 9.5 FL Neutrophils (%) (Auto) 75.6 % Lymphocytes (%) (Auto) 11.6 % Monocytes (%) (Auto) 9.6 % Eosinophils (%) (Auto) 2.6 % Basophils (%) (Auto) 0.6 % Neutrophils # (Auto) 5.2 TH/MM3 Lymphocytes # (Auto) 0.8 TH/MM3 Monocytes # (Auto) 0.7 TH/MM3 Eosinophils # (Auto) 0.2 TH/MM3 Basophils # (Auto) 0.0 TH/MM3 CBC Comment DIFF FINAL Differential Comment Prothrombin Time 10.6 SEC Prothromb Time International Ratio 1.0 RATIO Activated Partial Thromboplast Time 25.9 SEC Blood Urea Nitrogen 25 MG/DL Creatinine 1.27 MG/DL Random Glucose 143 MG/DL Total Protein 7.0 GM/DL Albumin 3.4 GM/DL Calcium Level 8.9 MG/DL Magnesium Level 1.9 MG/DL Alkaline Phosphatase 77 U/L Aspartate Amino Transf (AST/SGOT) 18 U/L Alanine Aminotransferase (ALT/SGPT) 24 U/L Total Bilirubin 1.6 MG/DL Sodium Level 141 MEQ/L Potassium Level 4.1 MEQ/L Chloride Level 109 MEQ/L Carbon Dioxide Level 27.2 MEQ/L Anion Gap 5 MEQ/L Estimat Glomerular Filtration Rate 56 ML/MIN Total Creatine Kinase 55 U/L Troponin I 0.03 NG/ML B-Type Natriuretic Peptide 254 PG/ML MDM Medical Decision Making Medical Screen Exam Complete: Yes Emergency Medical Condition: Yes Medical Record Reviewed: Yes Interpretation(s) Vital Signs Date Time Temp Pulse Resp B/P (MAP) Pulse Ox O2 Delivery O2 Flow Rate FiO2 09/16/17 12:52 94 Room Air 09/16/17 12:02 97.5 101 20 141/73 (95) 93 Last Impressions Chest X-Ray 09/16/17 1215 Signed Impressions: Service Date/Time: Saturday, September 16, 2017 12:46 - CONCLUSION: No acute disease. Dylan Jewell MD Laboratory Tests Test 09/16/17 12:45 White Blood Count 6.8 TH/MM3 Red Blood Count 5.14 MIL/MM3 Hemoglobin 15.7 GM/DL Hematocrit 45.9 % Mean Corpuscular Volume 89.2 FL Mean Corpuscular Hemoglobin 30.6 PG Mean Corpuscular Hemoglobin Concent 34.3 % Red Cell Distribution Width 13.7 % Platelet Count 158 TH/MM3 Mean Platelet Volume 9.5 FL Neutrophils (%) (Auto) 75.6 % Lymphocytes (%) (Auto) 11.6 % Monocytes (%) (Auto) 9.6 % Eosinophils (%) (Auto) 2.6 % Basophils (%) (Auto) 0.6 % Neutrophils # (Auto) 5.2 TH/MM3 Lymphocytes # (Auto) 0.8 TH/MM3 Monocytes # (Auto) 0.7 TH/MM3 Eosinophils # (Auto) 0.2 TH/MM3 Basophils # (Auto) 0.0 TH/MM3 CBC Comment DIFF FINAL Differential Comment Prothrombin Time 10.6 SEC Prothromb Time International Ratio 1.0 RATIO Activated Partial Thromboplast Time 25.9 SEC Blood Urea Nitrogen 25 MG/DL Creatinine 1.27 MG/DL Random Glucose 143 MG/DL Total Protein 7.0 GM/DL Albumin 3.4 GM/DL Calcium Level 8.9 MG/DL Magnesium Level 1.9 MG/DL Alkaline Phosphatase 77 U/L Aspartate Amino Transf (AST/SGOT) 18 U/L Alanine Aminotransferase (ALT/SGPT) 24 U/L Total Bilirubin 1.6 MG/DL Sodium Level 141 MEQ/L Potassium Level 4.1 MEQ/L Chloride Level 109 MEQ/L Carbon Dioxide Level 27.2 MEQ/L Anion Gap 5 MEQ/L Estimat Glomerular Filtration Rate 56 ML/MIN Total Creatine Kinase 55 U/L Troponin I 0.03 NG/ML B-Type Natriuretic Peptide 254 PG/ML Differential Diagnosis CHF versus deconditioning versus metabolic abnormality versus arrhythmia versus pneumonia versus other Narrative Course Patient presented with complaint of shortness of breath. Medical records reviewed. He was here on September 11 with an essentially negative workup. On August 21 he had a negative nuclear med stress test, ejection fraction is 28%. Labs and imaging ordered and pending. CBC with no acute findings, Chemistry with no acute findings Cardiac enzymes are negative 1 set BNP is 254, this is slightly elevated compared to prior value of 228 Chest x-ray shows no acute disease. Patient is followed by Dr. Desir, Dr. Miller was honey processor for cardiology today and case was discussed with him. He was advised on lab findings, the results of the nuclear med stress test at the beginning of August, patient's presenting complaint and physical exam. He recommended patient be placed on Entresto 24mg/26mg. He stated that he would notify Dr. Desir. Discussed plan of care with patient and his , they are pleased and agreeable. They were advised to follow-up in the office in 2-3 days. They are advised to return to emergency department immediately for any new or worsening symptoms. Diagnosis Primary Impression: Systolic heart failure Qualified Codes: I50.20 - Unspecified systolic (congestive) heart failure Referrals: Cris Desir MD 2 days Call Monday to schedule a follow-up appointment Patient Instructions: General Instructions, Heart Failure (ED), Heart Healthy Diet (ED) Additional Instructions: Follow-up with Dr. Desir in 2-3 days, call Monday to schedule a follow-up appointment Discontinue losartan Start Entresto twice daily as prescribed Return to emergency department for any new or worsening symptoms Weigh yourself daily Med/Other Pt SpecificInfo: Prescription(s) given Scripts Sacubitril-Valsartan (Entresto) 24-26 Mg Tab 1 TAB PO BID for Heart Failure, #60 TAB 0 Refills Prov: Bing Alexander 09/16/17 Disposition: 01 DISCHARGE HOME Condition: Stable Bing Alexander Sep 16, 2017 13:01
[2017-09-16 13:02] LABS: AUTOMATED NEUTROPHIL # 5.2 TH/MM3 (1.8-7.7); BASOPHIL % 0.6 % (0.0-2.0); EOSINOPHIL # 0.2 TH/MM3 (0-0.4); EOSINOPHIL % 2.6 % (0.0-4.0); HEMATOCRIT 45.9 % (39.0-51.0); HEMOGLOBIN 15.7 GM/DL (13.0-17.0); LYMPH % 11.6 % (9.0-44.0); LYMPHOCYTE # 0.8 TH/MM3 (1.0-4.8); MEAN CELL VOLUME 89.2 FL (80.0-100.0); MEAN CORPUSCULAR HEMOGLOBIN 30.6 PG (27.0-34.0); MEAN CORPUSCULAR HGB CONC 34.3 % (32.0-36.0); MEAN PLATELET VOLUME 9.5 FL (7.0-11.0); MONO % 9.6 % (0.0-8.0); MONOCYTE # 0.7 TH/MM3 (0-0.9); NEUT % 75.6 % (16.0-70.0); PLATELET COUNT 158 TH/MM3 (150-450); RED BLOOD COUNT 5.14 MIL/MM3 (4.50-5.90); RED CELL DISTRIBUTION WIDTH 13.7 % (11.6-17.2); WHITE BLOOD COUNT 6.8 TH/MM3 (4.0-11.0)
[2017-09-16 13:10] LABS: PROTHROMBIN TIME - PATIENT 10.6 SEC (9.8-11.6)
--- NOTE | 2017-09-16 13:12 | RADRPT ---
EXAM DATE/TIME: 09/16/2017 12:46 [facility] COMPARISON: CHEST SINGLE AP, September 11, 2017, 7:23. INDICATIONS : Shortness of breath. MEDICAL HISTORY : Congestive heart failure. Myocardial infarction. SURGICAL HISTORY : Pacemaker/Defib. ENCOUNTER: Initial ACUITY: 1 week PAIN SCORE: 0/10 LOCATION: chest FINDINGS: A single view of the chest demonstrates the lungs to be symmetrically aerated without evidence of mas s, infiltrate or effusion. The left subclavian transvenous pacer remains in place. The right hemidiap hragm remains mildly elevated. The heart size remains mildly prominent with no perihilar edema. [place] us structures are intact. CONCLUSION: No acute disease. Dylan Jewell MD on September 16, 2017 at 13:07 Board Certified Radiologist. This report was verified electronically.
[2017-09-16 13:26] LABS: ALBUMIN 3.4 GM/DL (3.4-5.0); ALT (GPT) 24 U/L (12-78); AST (GOT) 18 U/L (15-37); BICARBONATE 27.2 MEQ/L (21.0-32.0); BLOOD UREA NITROGEN 25 MG/DL (7-18); CALCIUM 8.9 MG/DL (8.5-10.1); CHLORIDE 109 MEQ/L (98-107); CREATININE 1.27 MG/DL (0.60-1.30); GLOMERULAR FILTRATION RATE 56 ML/MIN (>89); GLUCOSE,RANDOM 143 MG/DL (74-106); MAGNESIUM 1.9 MG/DL (1.5-2.5); SODIUM (NA) 141 MEQ/L (136-145)
[2017-09-16 13:30] LABS: ALKALINE PHOSPHATASE 77 U/L (45-117); TOTAL BILIRUBIN ADULT 1.6 MG/DL (0.2-1.0); TROPONIN I 0.03 NG/ML (0.02-0.05)
[2017-09-16 14:00] VITALS: BP 131/73; PULSE 81; RESP 18; O2SAT 95
[2017-09-16 15:00] VITALS: BP 149/83; PULSE 84; RESP 21; O2SAT 96
[2017-09-16] MEDS ORDERED: SACU1TAB PO ×2 (16:11→16:12)
--- NOTE | 2017-09-17 12:29 | EKG ---
Date Performed: 09/16/2017 Time Performed: 12:59:17 PTAGE: 72 years EKG: ATRIAL FIBRILLATION MARKED LEFT AXIS DEVIATION POSSIBLE ANTERIOR MYOCARDIAL INFARCTION Nons pecific T-wave changes ABNORMAL ECG Since PREVIOUS TRACING , no significant change noted PREVIOUS TRACIN09/11/2017 06.44 DOCTOR: Aron Lopez Interpretating Date/Time 09/17/2017 12:27:55
== END 2017-09-16 16:36 | disposition home or self-care (01) ==
LOC: NEPC 11:58
DX: I11.0 Hypertensive heart disease with heart failure (principal); I50.20 Unspecified systolic (congestive) heart failure; R94.31 Abnormal electrocardiogram [ECG] [EKG]; E11.9 Type 2 diabetes mellitus without complications; I48.91 Unspecified atrial fibrillation; I42.9 Cardiomyopathy, unspecified; Z95.810 Presence of automatic (implantable) cardiac defibrillator
CPT/HCPCS: 71045; 80053; 82550; 83735; 83880; 84484; 85025; 85610; 85730; 93005; 99285